=== PATIENT | female | born 1960 | race Caucasian/White ===

== ENCOUNTER → 2016-08-26 | Outpatient (CLI) | payer OTHER ==
[~2016-08-26] MED LIST: ALBI1INJ2 SQ; ASCO500C PO; CENTTAB9; CETI10TA71 PO; CIPR-9 PO; CO Q100C9 PO; CYAN1TAB24 PO; EMPA1TAB3 PO; GABA300C5 PO; GLIM4TAB PO; GLIP10TA6 PO; GLUC500C5 PO; GLYB5TAB3 PO; HYDR-3516 PO; IBUP200T2 PO; IBUP400T20 PO; LEVO.075 PO; MAGN500T4 PO; METF-324 PO; METF1000 PO; METR-1 PO; NAPR220T95 PO; ORPH100T PO; OXYC1TAB63 PO; POTA75TA PO; PROB1CAP12 PO; PYRI1TAB5 PO; SIMV20TA PO; SYNT25TA PO; TRAM50TA PO; VALT1TAB26 PO
== END ==
LOC: CLAB 12:00
PROVIDERS: ATTEND Internal Medicine Hematology
DX: N39.0 Urinary tract infection, site not specified (principal)
CPT/HCPCS: 87086

== ENCOUNTER 2016-08-28 16:16 | Inpatient (IN) | payer OTHER ==
[~2016-08-28] VITALS: Ht 170.2 cm; Wt 111.5 kg
[~2016-08-28 16:16] MED LIST changes: -ALBI1INJ2 SQ; -ASCO500C PO; -CETI10TA71 PO; -CIPR-9 PO; -CO Q100C9 PO; -CYAN1TAB24 PO; -EMPA1TAB3 PO; -GABA300C5 PO; -GLIM4TAB PO; -GLIP10TA6 PO; -GLUC500C5 PO; -HYDR-3516 PO; -IBUP200T2 PO; -LEVO.075 PO; -MAGN500T4 PO; -METF1000 PO; -METR-1 PO; -NAPR220T95 PO; -OXYC1TAB63 PO; -POTA75TA PO; -PROB1CAP12 PO; -PYRI1TAB5 PO; -SIMV20TA PO; -TRAM50TA PO
[2016-08-28 16:18] VITALS: BP 180/86; PULSE 126; RESP 20; TEMP 99.1; O2SAT 97
[2016-08-28] MEDS ORDERED: SODIUM CHLOR 0.9% 1000 ML INJ 1,000 ML IV SCH (16:32)
[2016-08-28 16:34] VITALS: O2SAT 99
[2016-08-28] MEDS ORDERED: TRAM50TA PO (16:34)
[2016-08-28] MEDS ORDERED: METF1000 PO (16:34)
[2016-08-28] MEDS ORDERED: GLIP10TA6 PO (16:34)
[2016-08-28] MEDS ORDERED: LEVO.075 PO (16:34)
[2016-08-28] MEDS ORDERED: SIMV20TA PO (16:34)
[2016-08-28] MEDS ORDERED: EMPA1TAB3 PO (16:34)
[2016-08-28] MEDS ORDERED: ALBI1INJ2 SQ (16:34)
--- NOTE | 2016-08-28 17:02 | RADRPT ---
EXAM DATE/TIME: 08/28/2016 16:53 [facility] COMPARISON: CHEST SINGLE AP, February 06, 2016, 15:04. INDICATIONS : Patient complains of upper abdominal pain. Shortness of breath. MEDICAL HISTORY : None. SURGICAL HISTORY : None. ENCOUNTER: Initial ACUITY: 1 day PAIN SCORE: 0/10 LOCATION: chest FINDINGS: A single view of the chest demonstrates the lungs to be symmetrically aerated without evidence of mas s, infiltrate or effusion. The cardiomediastinal contours are unremarkable. Osseous structures are intact. CONCLUSION: The lungs are clear. Jb Almeida MD on August 28, 2016 at 17:00 Board Certified Radiologist. This report was verified electronically.
[2016-08-28 17:05] LABS: AUTOMATED NEUTROPHIL # 14.4 TH/MM3 (1.8-7.7); BASOPHIL % 0.2 % (0.0-2.0); HEMATOCRIT 46.2 % (35.0-46.0); HEMO FLAGS DIFF FINAL; LYMPH % 3.6 % (9.0-44.0); LYMPHOCYTE # 0.6 TH/MM3 (1.0-4.8); MEAN CELL VOLUME 88.2 FL (80.0-100.0); MEAN CORPUSCULAR HEMOGLOBIN 29.7 PG (27.0-34.0); MEAN CORPUSCULAR HGB CONC 33.7 % (32.0-36.0); MONO % 4.3 % (0.0-8.0); NEUT % 91.9 % (16.0-70.0); PLATELET COUNT 230 TH/MM3 (150-450); RED BLOOD COUNT 5.24 MIL/MM3 (4.00-5.30); RED CELL DISTRIBUTION WIDTH 13.2 % (11.6-17.2); WHITE BLOOD COUNT 15.6 TH/MM3 (4.0-11.0)
[2016-08-28 17:17] LABS: BLOOD, URINE NEG (NEG); COMMENT (UR) CULT NOT INDICATED; CULTURE IF INDICATED CULT NOT INDICATED; GLUCOSE,URINE 1000 mg/dL (NEG); KETONE, URINE 80 mg/dL (NEG); NITRITE,URINE NEG (NEG); PH, URINE 5.5 (5.0-8.5); SQUAMOUS EPITHELIAL CELL URINE 1 /hpf (0-5); URINE COLOR LIGHT-YELLOW (YELLW/STRAW)
--- NOTE | 2016-08-28 17:24 | PD ---
HPI Chief Complaint: Abdominal Pain Time Seen by Provider: 17:18 Travel History International Travel<30 days: No Contact w/Intl Traveler<30days: No Traveled to known affect area: No History of Present Illness HPI 56-year-old female that presents to the ED for evaluation of abdominal discomfort. Per patient she has had some problems with her back and sciatic and she states that she has a herniated disc is that she had an MRI. Per patient she's been doing well with the medications given to her doctor and the physical therapy. Per patient on Tuesday she felt the were sensation of her lower abdomen and she does was related more to the sciatic at that anything else. Per patient she has had yeast infections in the past secondary to diabetes and she was seen by her doctor at that time and was diagnosed with yeast infection she was started on medications for this. On Tuesday she started having more symptoms of fullness in the bladder and sensation that she has to go to the bathroom more. She had a urine and show possible UTI such she was started on Cipro. Per patient she's been taking medications without problems but today she was having some discomfort in the lower abdomen which she attributed to the UTI and yeast infection so she didn't think much of it but she took a nap after doing some chores around her house and when she woke up she felt rebound tenderness on the epigastric area. Per patient the pain became more severe. Per patient she has had no nausea or vomiting. She denies any chest pain. But she does state that she feels short of breath which per patient she attributed to the anxiety as she does not like coming to the hospital. She denies any numbness, tingling, weakness. She states been compliant with her sugar medications. Per patient her sugars have been high. She denies any bowel movement issues. Currently she takes Tylenol, Aleve and tramadol. Per patient she believes she could have a fever as she still had some chills but she thinks that the tramadol but she thinks stasis likely masked because of the Tylenol and Aleve that she chronically takes for her pain in her back. Per patient the pain was feels like a pressure and a cramp. Patient initially started on the lower abdomen but what scared her is that went up the epigastric area. Pain is 7 out of 10. PFSH Past Medical History Diabetes: Yes Patient Takes Glucophage: Yes Thyroid Disease: Yes Tetanus Vaccination: < 5 Years Past Surgical History Cholecystectomy: Yes Social History Alcohol Use: No Tobacco Use: No Substance Use: No Allergies-Medications (Allergen,Severity, Reaction): Coded Allergies: Declomycin (Verified Allergy, Mild, RASH, 08/28/16) Sulfa (Verified Allergy, Mild, RASH, 08/28/16) Reported Meds & Prescriptions Reported Meds & Active Scripts Active Axysucp182 Mg 100 Mg Tobi 100 Mg PO HS Valtrex (Valacyclovir HCl) 1 Gm Tab 1 Gm PO TID 7 Days Motrin (Ibuprofen) 400 Mg Tab 400 Mg PO Q8HPRN Reported Tramadol (Tramadol HCl) 50 Mg Tab 50 Mg PO Q4H PRN Simvastatin 20 Mg Tab 20 Mg PO HS Synthroid (Levothyroxine Sodium) 75 Mcg Tab 75 Mcg PO DAILY Glipizide 10 Mg Tab 8 Mg PO DAILY Take 30 minutes before a meal Metformin (Metformin HCl) 1,000 Mg Tab 1,000 Mg PO BIDPC With meals Jardiance (Empagliflozin) 25 Mg Tab 25 Mg PO DAILY Tanzeum 4-Pack Inj (Albiglutide) 50 Mg Pfpen 50 Mg SQ Q7D Glyburide 5 Mg Tab 2.5 Mg PO DAILY Metformin ER 24 HR (Metformin HCl) 1,000 Mg Tab 1,000 Mg PO BID Synthroid (Levothyroxine Sodium) 25 Mcg Tab 50 Mcg PO DAILY Centrum (Multivitamins) Tab Review of Systems Except as stated in HPI: all other systems reviewed are Neg Physical Exam Narrative GENERAL: Obese SKIN: Warm and dry. HEAD: Atraumatic. Normocephalic. EYES: Pupils equal and round. No scleral icterus. No injection or drainage. ENT: No nasal bleeding or discharge. Mucous membranes pink and moist. Tongue is midline. No uvula deviation. NECK: Trachea midline. No JVD. CARDIOVASCULAR: Regular rate and rhythm. No murmurs, S3, S4. RESPIRATORY: No accessory muscle use. Clear to auscultation. Breath sounds equal bilaterally. GASTROINTESTINAL: Abdomen soft, tender with deep palpation on the epigastric area as well as the lower abdomen, nondistended. Hepatic and splenic margins not palpable. MUSCULOSKELETAL: Extremities without clubbing, cyanosis, or edema. No obvious deformities. Full range of motion of the upper and lower extremities bilaterally. 2+ pulses bilaterally. NEUROLOGICAL: Awake and alert. No obvious cranial nerve deficits. Motor grossly within normal limits. Five out of 5 muscle strength in the arms and legs. Normal speech. PSYCHIATRIC: Appropriate mood and affect; insight and judgment normal. Data Data Last Documented VS Vital Signs Date Time Temp Pulse Resp B/P Pulse Ox O2 Delivery O2 Flow Rate FiO2 08/28/16 18:52 100.9 106 20 147/65 08/28/16 16:34 99 08/28/16 16:18 Room Air Orders Electrocardiogram (08/28/16 16:32) Complete Blood Count With Diff (08/28/16 16:32) Comprehensive Metabolic Panel (08/28/16 16:32) Ckmb (Isoenzyme) Profile (08/28/16 16:32) Troponin I (08/28/16 16:32) Prothrombin Time / Inr (Pt) (08/28/16 16:32) Act Partial Throm Time (Ptt) (08/28/16 16:32) Lipase (08/28/16 16:32) Urinalysis - C+S If Indicated (08/28/16 16:32) Magnesium (Mg) (08/28/16 16:32) Chest, Single Ap (08/28/16 16:32) Ct Abd/Pel W Iv Contrast(Rout) (08/28/16 16:32) Iv Access Insert/Monitor (08/28/16 16:32) Ecg Monitoring (08/28/16 16:32) Oximetry (08/28/16 16:32) Sodium Chlor 0.9% 1000 Ml Inj (Ns 1000 M (08/28/16 16:32) Lactic Acid (08/28/16 17:18) CKMB (08/28/16 16:45) CKMB% (08/28/16 16:45) Iohexol 350 Inj (Omnipaque 350 Inj) (08/28/16 18:29) Metronidazole 500 Mg Inj (Flagyl 500 Mg (08/28/16 19:15) Ciprofloxacin 200 Mg Premix (Cipro 200 M (08/28/16 19:15) Morphine Inj (Morphine Inj) (08/28/16 19:15) Ondansetron Inj (Zofran Inj) (08/28/16 19:15) Labs Laboratory Tests Test 08/28/16 08/28/16 16:45 17:30 White Blood Count 15.6 TH/MM3 Red Blood Count 5.24 MIL/MM3 Hemoglobin 15.6 GM/DL Hematocrit 46.2 % Mean Corpuscular Volume 88.2 FL Mean Corpuscular Hemoglobin 29.7 PG Mean Corpuscular Hemoglobin 33.7 % Concent Red Cell Distribution Width 13.2 % Platelet Count 230 TH/MM3 Mean Platelet Volume 7.9 FL Neutrophils (%) (Auto) 91.9 % Lymphocytes (%) (Auto) 3.6 % Monocytes (%) (Auto) 4.3 % Eosinophils (%) (Auto) 0.0 % Basophils (%) (Auto) 0.2 % Neutrophils # (Auto) 14.4 TH/MM3 Lymphocytes # (Auto) 0.6 TH/MM3 Monocytes # (Auto) 0.7 TH/MM3 Eosinophils # (Auto) 0.0 TH/MM3 Basophils # (Auto) 0.0 TH/MM3 CBC Comment DIFF FINAL Differential Comment Prothrombin Time 10.7 SEC Prothromb Time International 1.0 RATIO Ratio Activated Partial 25.7 SEC Thromboplast Time Urine Color LIGHT-YELLOW Urine Turbidity CLEAR Urine pH 5.5 Urine Specific [place] 1.036 Urine Protein NEG mg/dL Urine Glucose (UA) 1000 mg/dL Urine Ketones 80 mg/dL Urine Occult Blood NEG Urine Nitrite NEG Urine Bilirubin NEG Urine Urobilinogen LESS THAN 2.0 MG/DL Urine Leukocyte Esterase NEG Urine RBC LESS THAN 1 /hpf Urine WBC 1 /hpf Urine Squamous Epithelial 1 /hpf Cells Microscopic Urinalysis Comment CULT NOT INDICATED Sodium Level 139 MEQ/L Potassium Level 4.1 MEQ/L Chloride Level 104 MEQ/L Carbon Dioxide Level 23.9 MEQ/L Anion Gap 11 MEQ/L Blood Urea Nitrogen 15 MG/DL Creatinine 0.83 MG/DL Estimat Glomerular Filtration 71 ML/MIN Rate Random Glucose 206 MG/DL Calcium Level 9.0 MG/DL Magnesium Level 2.2 MG/DL Total Bilirubin 0.7 MG/DL Aspartate Amino Transf 13 U/L (AST/SGOT) Alanine Aminotransferase 27 U/L (ALT/SGPT) Alkaline Phosphatase 52 U/L Total Creatine Kinase 159 U/L Creatine Kinase MB 2.0 NG/ML Troponin I LESS THAN 0.02 NG/ML Total Protein 7.8 GM/DL Albumin 4.6 GM/DL Lipase 71 U/L Lactic Acid Level 1.3 mmol/L MDM Medical Decision Making Medical Screen Exam Complete: Yes Emergency Medical Condition: Yes Medical Record Reviewed: Yes Interpretation(s) CBC Diagram 08/28/16 16:45 BMP Diagram 08/28/16 16:45 LFts and lipase WNL UA negative EKG shows sinus tachycardia. Last Impressions Chest X-Ray 08/28/16 1632 Signed Impressions: Service Date/Time: Sunday, August 28, 2016 16:53 - CONCLUSION: The lungs are clear. Jb Almeida MD Abdomen/Pelvis CT 08/28/16 1632 Signed Impressions: Service Date/Time: Sunday, August 28, 2016 18:20 - CONCLUSION: 1. Dilation of the common bile duct up to 12 mm. Prior cholecystectomy. No filling defects seen in the common bile duct, but there is a possible fullness seen in the region of the ampulla. Recommend direct visualization of the ampulla with ERCP. 2. Questionable induration along the superior margin of the proximal sigmoid colon with multiple diverticula in the sigmoid colon. Cannot exclude diverticulitis on the basis of the scan. No evidence of free fluid. Jb Almeida MD Differential Diagnosis UTI versus cystitis versus diverticulitis versus sepsis versus DKA versus acute abdomen versus appendicitis versus pyelonephritis Narrative Course 56-year-old female that presents to the ED for evaluation of lower abdominal pain. Patient was properly examined and was found to have signs and symptoms of unclear etiology at this time. She is profoundly tachycardic in the 120s. Concerning for septics secondary to her history of recent infection. Last and imaging are recommended. Patient he complains of shortness of breath and with epigastric pain. Patient is diabetic. The less likely this could be angina equivalent. We'll do an EKG and troponin to rule out any sign of heart disease at this time although less likely. Labs and imaging showed what appears to be diverticulitis. CT of the abdomen and pelvis did show dilatation of the common bile duct patient does not have any right upper quadrant pain on my examination. Patient does appear to be septic with an elevated while sick and as well as elevated heart rate and a fever here in the ED. Because of the symptoms I do recommend admission for sepsis and diverticulitis. This was discussed with the patient who agrees with plan. ESTHER was paged and Dr Mansfield agrees to admission. Procedures EKG Prior to Arrival: No Sepsis Criteria SIRS Criteria (2 or more): Temp > 100.9 or < 96.8, Heart rate over 90, WBC > 60806, < 4000 or > 10% bands Sepsis Criteria (SIRS+source): Infect source susp/known Criteria Outcome: Meets sepsis criteria Diagnosis Primary Impression: Diverticulitis Qualified Code: K57.32 - Diverticulitis of large intestine without perforation or abscess without bleeding Additional Impression: Sepsis Qualified Code: A41.9 - Sepsis, due to unspecified organism Admitting Information Admitting Physician Requests: Admit Davy Donald Aug 28, 2016 17:24
[2016-08-28 17:26] LABS: APTT (PATIENT) 25.7 SEC (24.3-30.1); PROTHROMBIN TIME - PATIENT 10.7 SEC (9.8-11.6)
[2016-08-28 17:32] LABS: ALT (GPT) 27 U/L (10-53); ANION GAP 11 MEQ/L (5-15); AST (GOT) 13 U/L (15-37); BICARBONATE 23.9 MEQ/L (21.0-32.0); BLOOD UREA NITROGEN 15 MG/DL (7-18); CHLORIDE 104 MEQ/L (98-107); GLOMERULAR FILTRATION RATE 71 ML/MIN (>89); MAGNESIUM 2.2 MG/DL (1.5-2.5); POTASSIUM 4.1 MEQ/L (3.5-5.1); SODIUM (NA) 139 MEQ/L (136-145)
[2016-08-28 17:35] LABS: ALKALINE PHOSPHATASE 52 U/L (45-117); CREATINE KINASE 159 U/L (26-192); TOTAL BILIRUBIN ADULT 0.7 MG/DL (0.2-1.0)
[2016-08-28] MEDS ORDERED: IOHEXOL 350 MG/ML 10 ML VIAL (for RAD DIAG) IV ONE (18:29)
[2016-08-28 18:52] VITALS: BP 147/65; PULSE 106; RESP 20; TEMP 100.9
--- NOTE | 2016-08-28 18:56 | RADRPT ---
EXAM DATE/TIME: 08/28/2016 18:20 [facility] COMPARISON: No previous studies available for comparison. INDICATIONS : Abdomen pain. IV CONTRAST: 94 cc Omnipaque 350 (iohexol) IV ORAL CONTRAST: No oral contrast ingested. RADIATION DOSE: 14.81 CTDIvol (mGy) MEDICAL HISTORY : Diabetic. SURGICAL HISTORY : Cholecystectomy. ENCOUNTER: Initial ACUITY: 1 day PAIN SCALE: 5/10 LOCATION: Bilateral abdomen. TECHNIQUE: Volumetric scanning of the abdomen and pelvis was performed. Using automated exposure control and ad justment of the mA and/or kV according to patient size, radiation dose was kept as low as reasonably achievable to obtain optimal diagnostic quality images. FINDINGS: LOWER LUNGS: The visualized lower lungs are clear. LIVER: Homogeneous density without lesion. There is no dilation of the intrahepatic biliary tree. Multiple hemo clips in the kristie from prior cholecystectomy. The common bile duct is prominent measuring up to 1.2 cm in dimension. No calcifications seen.. SPLEEN: Normal size without lesion. PANCREAS: Within normal limits. KIDNEYS: Normal in size and shape. There is no mass, stone or hydronephrosis. ADRENAL GLANDS: Within normal limits. VASCULAR: There is no aortic aneurysm. BOWEL/MESENTERY: No dilated loops of small or large bowel. There are multiple diverticula in the sigmoid colon and so me scattered diverticulum left colon. No definite induration of the fat about the sigmoid colon, how ever, on image #81, there is questionable induration versus partial voluming. No evidence of free fl uid. ABDOMINAL WALL: Within normal limits. RETROPERITONEUM: There is no lymphadenopathy. BLADDER: No wall thickening or mass. REPRODUCTIVE: Within normal limits. INGUINAL: There is no lymphadenopathy or hernia. MUSCULOSKELETAL: Moderate severity osteoarthritis of both hips with supra-acetabular cystic areas and sclerosis of the supra-acetabular bone. CONCLUSION: 1. Dilation of the common bile duct up to 12 mm. Prior cholecystectomy. No filling defects seen in the common bile duct, but there is a possible fullness seen in the region of the ampulla. Recommend direct visualization of the ampulla with ERCP. 2. Questionable induration along the superior margin of the proximal sigmoid colon with multiple dive rticula in the sigmoid colon. Cannot exclude diverticulitis on the basis of the scan. No evidence o f free fluid. Jb Almeida MD on August 28, 2016 at 18:49 Board Certified Radiologist. This report was verified electronically.
[2016-08-28] MEDS ORDERED: MORPHINE SULFATE 4 MG/ML INJ IV PUSH ONE (19:15)
[2016-08-28] MEDS ORDERED: CIPROFLOXACIN 200 MG PREMIX 100 ML IV ONE (19:15)
[2016-08-28] MEDS ORDERED: ONDANSETRON HCL 4 MG/2 ML VIAL IV PUSH ONE (19:15)
[2016-08-28] MEDS ORDERED: metroNIDAZOLE 500 MG INJ 100 ML IV ONE (19:15)
--- NOTE | 2016-08-28 19:35 | HHI.HP ---
[facility] Kisha Gallego MD Admission Diagnosis diverticulitis, sepsis Diagnoses: (1) Sepsis Diagnosis: Principal (2) Diverticulitis Diagnosis: Principal (3) DM (diabetes mellitus) Diagnosis: Principal Travel History International Travel<30 Days: No Contact w/Intl Traveler <30 Da: No Traveled to Known Affected Are: No History of Present Illness This is a 56-year-old female with a PMH of DM and Hypothyroidism who presented to the ER with complaints of lower abdominal pain for approx 1wk. 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 The following day while at work, she developed symptoms of UTI and was prescribed Cipro, however not able to fill prescription until yesterday. Today, pt w/ severe abdominal pain w/ "rebound" and decided to come to ER. Denies fever, chills, nausea, vomiting or diarrhea. On arrival, BP 180/ 86, HR 126, O2 sat 97% on RA, Temp 99.1, repeat Temp 100.9. WBC 15.6. Chemistry essentially unremarkable except for BS 206. Lactic Acid 1.3. UA negative. CXR with no acute findings. CT Abd/Pelvis w/ dilation of CBD w/ possible fullness for which ERCP recommended and questionable induration along proximal sigmoid colon suggestive of diverticulitis. S/p Blood Cultures, Cipro/ Flagyl in ER. Review of Systems Other ROS: 14 point review of systems otherwise negative. Past Family Social History Past Medical History PMH: DM and Hypothyroidism Past Surgical History PAST SURGICAL HISTORY: Cholecystectomy Allergies: Coded Allergies: Declomycin (Verified Allergy, Mild, RASH, 08/28/16) Sulfa (Verified Allergy, Mild, RASH, 08/28/16) Family History PAST FAMILY HISTORY: Reviewed, positive for DM. Social History PAST SOCIAL HISTORY: Negative for alcohol, tobacco or drugs. Physical Exam Vital Signs Vital Signs Date Time Temp Pulse Resp B/P Pulse Ox O2 Delivery O2 Flow Rate FiO2 08/28/16 18:52 100.9 106 20 147/65 08/28/16 16:34 99 08/28/16 16:18 99.1 126 20 180/86 97 Room Air Physical Exam PE: GENERAL: Very pleasant middle-aged white female in no acute distress. HEENT: PERRLA, EOMI. No scleral icterus or conjunctival pallor. No lid lag or facial droop. CARDIOVASCULAR: Regular rate and rhythm. No obvious murmurs to auscultation. No chest tenderness to palpation. RESPIRATORY: No obvious rhonchi or wheezing. Clear to auscultation. Breath sounds equal bilaterally. GASTROINTESTINAL: Abdomen soft, diffuse tenderness to palpation, nondistended. BS normal. MUSCULOSKELETAL: Extremities without clubbing, cyanosis, or edema. No obvious deformities. NEUROLOGICAL: Awake, alert and oriented x4. No focal neurologic deficits. Moving both upper and lower extremities spontaneously. Laboratory Laboratory Tests Test 08/28/16 08/28/16 16:45 17:30 White Blood Count 15.6 Red Blood Count 5.24 Hemoglobin 15.6 Hematocrit 46.2 Mean Corpuscular Volume 88.2 Mean Corpuscular Hemoglobin 29.7 Mean Corpuscular Hemoglobin 33.7 Concent Red Cell Distribution Width 13.2 Platelet Count 230 Mean Platelet Volume 7.9 Neutrophils (%) (Auto) 91.9 Lymphocytes (%) (Auto) 3.6 Monocytes (%) (Auto) 4.3 Eosinophils (%) (Auto) 0.0 Basophils (%) (Auto) 0.2 Neutrophils # (Auto) 14.4 Lymphocytes # (Auto) 0.6 Monocytes # (Auto) 0.7 Eosinophils # (Auto) 0.0 Basophils # (Auto) 0.0 CBC Comment DIFF FINAL Differential Comment Prothrombin Time 10.7 Prothromb Time International 1.0 Ratio Activated Partial 25.7 Thromboplast Time Urine Color LIGHT-YELLOW Urine Turbidity CLEAR Urine pH 5.5 Urine Specific [place] 1.036 Urine Protein NEG Urine Glucose (UA) 1000 Urine Ketones 80 Urine Occult Blood NEG Urine Nitrite NEG Urine Bilirubin NEG Urine Urobilinogen LESS THAN 2.0 Urine Leukocyte Esterase NEG Urine RBC LESS THAN 1 Urine WBC 1 Urine Squamous Epithelial 1 Cells Microscopic Urinalysis Comment CULT NOT INDICATED Sodium Level 139 Potassium Level 4.1 Chloride Level 104 Carbon Dioxide Level 23.9 Anion Gap 11 Blood Urea Nitrogen 15 Creatinine 0.83 Estimat Glomerular Filtration 71 Rate Random Glucose 206 Calcium Level 9.0 Magnesium Level 2.2 Total Bilirubin 0.7 Aspartate Amino Transf 13 (AST/SGOT) Alanine Aminotransferase 27 (ALT/SGPT) Alkaline Phosphatase 52 Total Creatine Kinase 159 Creatine Kinase MB 2.0 Troponin I LESS THAN 0.02 Total Protein 7.8 Albumin 4.6 Lipase 71 Lactic Acid Level 1.3 Result Diagram: 08/28/16 1645 08/28/161644 Assessment and Plan Problem List: (1) Sepsis ICD Code: A41.9 Status: Acute (2) Diverticulitis ICD Code: K57.92 Status: Acute (3) DM (diabetes mellitus) ICD Code: E11.9 Status: Acute Assessment and Plan A/P: 1. Sepsis: Temp 100.9, WBC 15, HR 126, Source-Colitis. S/p Blood Cultures, Cipro/Flagyl. Follow up cultures, continue IV Abx. CXR w/ no acute findings, images reviewed by me. 2. Diverticulitis: Lower abdominal pain x1 wk, CT Abd/Pelvis w/ questionable induration along proximal sigmoid colon suggestive of diverticulitis, also noted to have CBD dilatation w/ possible fullness of ampulla for which ERCP was recommended. Pt w/ no RUQ pain. Will continue w/ IV Abx for Diverticulitis, if symptoms persistent, will ask GI to eval for further recommendations. Analgesics/antiemetics. 3. DM: Sliding scale w/ Accu-Cheks, hold Metformin/Glipizide in light of Sepsis and decreased PO intake. 4. DVT Prophylaxis: SCD/Teds. 5. Social work for d/c planning as needed. 6. Case discussed w/ ER physician at length. Physician Certification 2 Midnight Certification Type: Admission for Inpatient Services Order for Inpatient Services The services are ordered in accordance with Medicare regulations or non- Medicare payer requirements, as applicable. In the case of services not specified as inpatient-only, they are appropriately provided as inpatient services in accordance with the 2-midnight benchmark. Estimated LOS (days): 2 days is the estimated time the patient will need to remain in the hospital, assuming treatment plan goals are met and no additional complications. Post-Hospital Plan: Not yet determined Problem Qualifiers (1) Sepsis: Qualified Code: A41.9 - Sepsis, due to unspecified organism (2) Diverticulitis: Qualified Code: K57.32 - Diverticulitis of large intestine without perforation or abscess without bleeding Judy Mansfield MD Aug 28, 2016 19:35
[2016-08-28] MEDS ORDERED: SODIUM CHLORIDE 0.9% FLUSH 5 ML FLUSH FLUSH PRN (19:45)
[2016-08-28] MEDS ORDERED: DEXTROSE 50% IN WATER 50 ML VIAL(D50) IV PUSH PRN (19:45)
[2016-08-28] MEDS ORDERED: ACETAMINOPHEN/HYDROcodone 325 MG/5 MG TAB PO PRN (19:45)
[2016-08-28] MEDS ORDERED: BISACODYL 10 MG SUPP PR PRN (19:45)
[2016-08-28] MEDS ORDERED: GLUCAGON 1 MG/ML VIAL OTHER PRN (19:45)
[2016-08-28] MEDS: SODIUM CHLOR 0.9% 1000 ML INJ 1,000 ML IV SCH (19:57)
[2016-08-28] MEDS: SODIUM CHLORIDE 0.9% FLUSH 5 ML FLUSH FLUSH SCH (20:36)
[2016-08-28] MEDS: INSULIN ASPART SUPPLEMENTAL SCALE SQ SCH (20:40)
[2016-08-28 21:11] VITALS: BP 121/53; PULSE 102; RESP 18; TEMP 100; O2SAT 98
[2016-08-28] MEDS: MORPHINE SULFATE 4 MG/ML INJ IV PRN (21:37)
[2016-08-28 21:50] VITALS: O2SAT 94
[2016-08-29] VITALS (7 sets, daily range): BP systolic 108–123; BP diastolic 50–61; PULSE 81–108; RESP 16–18; TEMP 98–99.5; O2SAT 93–97
[2016-08-29] MEDS: MORPHINE SULFATE 4 MG/ML INJ IV PRN ×5 (00:29→11:54)
[2016-08-29] MEDS: ACETAMINOPHEN 325 MG TAB PO PRN ×2 (03:46→08:26)
[2016-08-29] MEDS: SODIUM CHLOR 0.9% 1000 ML INJ 1,000 ML IV SCH ×2 (03:49→11:55)
[2016-08-29] MEDS: metroNIDAZOLE 500 MG INJ 100 ML IV SCH ×3 (03:49→19:47)
[2016-08-29 05:28] LABS: ALT (GPT) 20 U/L (10-53); ANION GAP 10 MEQ/L (5-15); AST (GOT) 8 U/L (15-37); BICARBONATE 23.5 MEQ/L (21.0-32.0); BLOOD UREA NITROGEN 11 MG/DL (7-18); CHLORIDE 107 MEQ/L (98-107); GLOMERULAR FILTRATION RATE 105 ML/MIN (>89); POTASSIUM 4.1 MEQ/L (3.5-5.1); SODIUM (NA) 140 MEQ/L (136-145)
[2016-08-29 05:29] LABS: ALKALINE PHOSPHATASE 43 U/L (45-117); TOTAL BILIRUBIN ADULT 0.8 MG/DL (0.2-1.0)
[2016-08-29 05:39] LABS: AUTOMATED NEUTROPHIL # 13.1 TH/MM3 (1.8-7.7); BASOPHIL % 0.1 % (0.0-2.0); HEMATOCRIT 41.2 % (35.0-46.0); HEMO FLAGS DIFF FINAL; LYMPH % 6.9 % (9.0-44.0); MEAN CELL VOLUME 89.6 FL (80.0-100.0); MEAN CORPUSCULAR HEMOGLOBIN 29.5 PG (27.0-34.0); MEAN CORPUSCULAR HGB CONC 32.9 % (32.0-36.0); MONO % 4.4 % (0.0-8.0); NEUT % 88.6 % (16.0-70.0); PLATELET COUNT 218 TH/MM3 (150-450); RED CELL DISTRIBUTION WIDTH 13.2 % (11.6-17.2); WHITE BLOOD COUNT 14.7 TH/MM3 (4.0-11.0)
[2016-08-29] MEDS: INSULIN ASPART SUPPLEMENTAL SCALE SQ SCH ×4 (06:16→19:56)
[2016-08-29] MEDS: CIPROFLOXACIN 400 MG PREMIX 200 ML IV SCH ×2 (06:16→17:15)
[2016-08-29] MEDS: SODIUM CHLORIDE 0.9% FLUSH 5 ML FLUSH FLUSH SCH ×2 (07:49→19:47)
--- NOTE | 2016-08-29 08:02 | HHI.PR ---
Subjective Remarks still with lower abdominal pain. no nausea, vomiting or diarrhea. T max 100.9. Objective Vitals Vital Signs Date Time Temp Pulse Resp B/P Pulse Ox O2 Delivery O2 Flow Rate FiO2 08/29/16 04:00 99.5 91 18 109/57 96 08/29/16 00:00 99.5 96 16 108/54 97 08/28/16 21:50 94 08/28/16 21:11 100.0 102 18 121/53 98 08/28/16 18:52 100.9 106 20 147/65 08/28/16 16:34 99 08/28/16 16:18 99.1 126 20 180/86 97 Room Air I/O 08/28/16 08/28/16 08/28/16 08/29/16 08/29/16 08/29/16 07:00 15:00 23:00 07:00 15:00 23:00 Intake Total 1000 ml 1151 ml Balance 1000 ml 1151 ml Intake Oral 240 ml IV Total 1000 ml 911 ml # Voids 1 # Bowel Movements 0 Result Diagram: 08/29/16 0343 08/29/16 0343 Imaging Last Impressions Chest X-Ray 08/28/16 1632 Signed Impressions: Service Date/Time: Sunday, August 28, 2016 16:53 - CONCLUSION: The lungs are clear. Jb Almeida MD Abdomen/Pelvis CT 08/28/16 1632 Signed Impressions: Service Date/Time: Sunday, August 28, 2016 18:20 - CONCLUSION: 1. Dilation of the common bile duct up to 12 mm. Prior cholecystectomy. No filling defects seen in the common bile duct, but there is a possible fullness seen in the region of the ampulla. Recommend direct visualization of the ampulla with ERCP. 2. Questionable induration along the superior margin of the proximal sigmoid colon with multiple diverticula in the sigmoid colon. Cannot exclude diverticulitis on the basis of the scan. No evidence of free fluid. Jb Almeida MD Objective Remarks GENERAL: This is a well-nourished, well-developed patient, in no apparent distress. CARDIOVASCULAR: Regular rate and regular rhythm without murmurs, gallops, or rubs. RESPIRATORY: Clear to auscultation. Breath sounds equal bilaterally. No wheezes , rales, or rhonchi. GASTROINTESTINAL: Abdomen soft, lower abdominal tenderness, nondistended. Normal, active bowel sounds MUSCULOSKELETAL: Extremities without clubbing, cyanosis, or edema. NEURO: Alert & Oriented x4 to person, place, time, situation. Moves all ext x4 Procedures none Medications and IVs Current Medications Sodium Chloride (NS 1000 ml Inj) 1,000 ml @ 1,000 mls/hr Q1H IV Last administered on 08/28/16 16:59; Start 08/28/16 at 16:32; Stop 08/28/16 at 17:31 ; Status DC Iohexol 100 ml 100 ml STK-MED ONCE IV ; Start 08/28/16 at 18:29; Stop 08/28/16 at 18:30; Status DC Metronidazole 100 ml @ 100 mls/hr ONCE ONCE IV Last administered on 19:21; Start 08/28/16 at 19:15; Stop 08/28/16 at 20:14; Status DC Ciprofloxacin/ Dextrose (Cipro 200 Mg Premix) 100 ml @ 100 mls/hr ONCE ONCE IV Last administered on 08/28/16 20:55; Start 08/28/16 at 19:15; Stop at 20:14; Status DC Morphine Sulfate (Morphine Inj) 4 mg ONCE ONCE IV PUSH Last administered on 19:20; Start 08/28/16 at 19:15; Stop 08/28/16 at 19:16; Status DC Ondansetron HCl (Zofran Inj) 4 mg ONCE ONCE IV PUSH Last administered on 19:20; Start 08/28/16 at 19:15; Stop 08/28/16 at 19:16; Status DC Dextrose (D50w (Vial) Inj) 25 ml UNSCH PRN IV PUSH HYPOGLYCEMIA-SEE COMMENTS; Start 08/28/16 at 19:45 Glucagon (Glucagon Inj) 1 mg UNSCH PRN OTHER HYPOGLYCEMIA-SEE COMMENTS; Start 08/28/16 at 19:45 Insulin Aspart 1 1 ACHS SLIDING SCALE SQ Last administered on 08/28/16 20:40 ; Start 08/28/16 at 21:00 Ciprofloxacin/ Dextrose 200 ml @ 200 mls/hr Q12H IV Last administered on 06:16; Start 08/29/16 at 07:00 Metronidazole 100 ml @ 100 mls/hr Q8H IV Last administered on 08/29/16 03:49 ; Start 08/29/16 at 05:00 Sodium Chloride (NS 1000 ml Inj) 1,000 ml @ 100 mls/hr Q10H IV Last administered on 08/29/16 03:49; Start 08/28/16 at 19:32 IV Flush (NS Flush) 2 ml UNSCH PRN FLUSH FLUSH AFTER USING IV ACCESS Last administered on 08/28/16 21:37; Start 08/28/16 at 19:45 IV Flush (NS Flush) 2 ml BID FLUSH ; Start 08/28/16 at 21:00 Ondansetron HCl (Zofran Inj) 4 mg Q6H PRN IVP NAUSEA OR VOMITING; Start at 19:45 Bisacodyl (Dulcolax Supp) 10 mg DAILY PRN [place] CONSTIPATION; Start 08/28/16 at 19 :45 Acetaminophen (Tylenol) 650 mg Q6H PRN PO FEVER/PAIN SCALE 1 TO 2 Last administered on 08/29/16 03:46; Start 08/28/16 at 19:45 Acetaminophen/ Hydrocodone Bitart ([place] 5-325 Mg) 1 tab Q4H PRN PO PAIN SCALE 3 TO 5; Start 08/28/16 at 19:45 Morphine Sulfate (Morphine Inj) 2 mg Q3H PRN IV Pain 6-10 Last administered on 08/29/16 06:17; Start 08/28/16 at 19:45 A/P Assessment and Plan A/P - Sepsis likely due to Diverticulitis: Lower abdominal pain x1 wk, CT Abd/Pelvis w/ questionable induration along proximal sigmoid colon suggestive of diverticulitis, also noted to have CBD dilatation w/ possible fullness of ampulla for which ERCP was recommended. Pt w / no RUQ pain. Will continue w/ IV Abx for Diverticulitis. Analgesics/ antiemetics. will consult GI. - DM: Sliding scale w/ Accu-Cheks, hold Metformin/Glipizide in light of Sepsis and decreased PO intake. -hypothyroidism; resume home meds upon discharge. - DVT Prophylaxis: SCD/Teds. Mallory Hamilton MD Aug 29, 2016 08:02
--- NOTE | 2016-08-29 12:08 | HHI.GIFU ---
Objective Vitals I&O Vital Signs Date Time Temp Pulse Resp B/P Pulse Ox O2 Delivery O2 Flow Rate FiO2 08/29/16 09:26 20 08/29/16 09:09 18 08/29/16 08:00 98.8 85 17 109/50 96 08/29/16 04:00 99.5 91 18 109/57 96 08/29/16 00:00 99.5 96 16 108/54 97 08/28/16 21:50 94 08/28/16 21:11 100.0 102 18 121/53 98 08/28/16 18:52 100.9 106 20 147/65 08/28/16 16:34 99 08/28/16 16:18 99.1 126 20 180/86 97 Room Air I/O 08/28/16 08/28/16 08/28/16 08/29/16 08/29/16 08/29/16 07:00 15:00 23:00 07:00 15:00 23:00 Intake Total 1000 ml 1151 ml Balance 1000 ml 1151 ml Intake Oral 240 ml IV Total 1000 ml 911 ml # Voids 1 # Bowel Movements 0 Laboratory Laboratory Tests Test 08/28/16 08/28/16 08/29/16 16:45 17:30 03:43 White Blood Count 15.6 14.7 Red Blood Count 5.24 4.60 Hemoglobin 15.6 13.6 Hematocrit 46.2 41.2 Mean Corpuscular Volume 88.2 89.6 Mean Corpuscular Hemoglobin 29.7 29.5 Mean Corpuscular Hemoglobin 33.7 32.9 Concent Red Cell Distribution Width 13.2 13.2 Platelet Count 230 218 Mean Platelet Volume 7.9 8.1 Neutrophils (%) (Auto) 91.9 88.6 Lymphocytes (%) (Auto) 3.6 6.9 Monocytes (%) (Auto) 4.3 4.4 Eosinophils (%) (Auto) 0.0 0.0 Basophils (%) (Auto) 0.2 0.1 Neutrophils # (Auto) 14.4 13.1 Lymphocytes # (Auto) 0.6 1.0 Monocytes # (Auto) 0.7 0.7 Eosinophils # (Auto) 0.0 0.0 Basophils # (Auto) 0.0 0.0 CBC Comment DIFF FINAL DIFF FINAL Differential Comment Prothrombin Time 10.7 Prothromb Time International 1.0 Ratio Activated Partial 25.7 Thromboplast Time Urine Color LIGHT-YELLOW Urine Turbidity CLEAR Urine pH 5.5 Urine Specific [place] 1.036 Urine Protein NEG Urine Glucose (UA) 1000 Urine Ketones 80 Urine Occult Blood NEG Urine Nitrite NEG Urine Bilirubin NEG Urine Urobilinogen LESS THAN 2.0 Urine Leukocyte Esterase NEG Urine RBC LESS THAN 1 Urine WBC 1 Urine Squamous Epithelial 1 Cells Microscopic Urinalysis Comment CULT NOT INDICATED Sodium Level 139 140 Potassium Level 4.1 4.1 Chloride Level 104 107 Carbon Dioxide Level 23.9 23.5 Anion Gap 11 10 Blood Urea Nitrogen 15 11 Creatinine 0.83 0.59 Estimat Glomerular Filtration 71 105 Rate Random Glucose 206 124 Calcium Level 9.0 8.3 Magnesium Level 2.2 Total Bilirubin 0.7 0.8 Aspartate Amino Transf 13 8 (AST/SGOT) Alanine Aminotransferase 27 20 (ALT/SGPT) Alkaline Phosphatase 52 43 Total Creatine Kinase 159 Creatine Kinase MB 2.0 Troponin I LESS THAN 0.02 Total Protein 7.8 6.5 Albumin 4.6 3.5 Lipase 71 Lactic Acid Level 1.3 Assessment and Plan Physician Comments dictation line problems-consult to be dictated when able Plan egd/colon in Leidy Martel MD Aug 29, 2016 12:08 [employer]ICAL [employer]OL [employer]OL PROGRAMMER: No focal deficits; alert and oriented times three. Assessment and Plan Physician Comments dictation line problems-consult to be dictated when able Plan egd/colon in Leidy Martel MD Aug 29, 2016 12:08
[2016-08-29] MEDS ORDERED: PEG (High)/E-LYTE SOLN 4000 ML BTL PO ONE (13:00)
--- NOTE | 2016-08-29 13:19 | EKG ---
Date Performed: 08/28/2016 Time Performed: 16:39:22 PTAGE: 56 years EKG: SINUS TACHYCARDIA ABNORMAL RHYTHM ECG Compared to prior tracing no significant change PREVIOUS TRACING : 02/06/2016 14.48 DOCTOR: Johnathon Nice Interpretating Date/Time 08/29/2016 13:15:02
--- NOTE | 2016-08-29 14:51 | RADRPT ---
EXAM DATE/TIME: 08/29/2016 14:00 [facility] COMPARISON: CT ABDOMEN & PELVIS W CONTRAST, August 28, 2016, 18:20. INDICATIONS : Abnormal CT scan. MEDICAL HISTORY : Diabetes mellitus type 2. SURGICAL HISTORY : Cholecystectomy. ENCOUNTER: Initial ACUITY: 1 day PAIN SCORE: 4/10 LOCATION: Abdomen TECHNIQUE: Multiplanar, multisequence magnetic resonance imaging of the abdomen was performed. High-resolution 3D dataset was utilized to reconstruct maximum-intensity projection (MIP) images. FINDINGS: INTRAHEPATIC BILE DUCTS: Within normal limits. No significant anatomical variant is present. EXTRAHEPATIC BILE DUCTS: The common bile duct measures 1.3 cm No stone or filling defect is identified. GALLBLADDER: Surgically removed. LIVER: Normal size and signal intensity. No concerning liver lesion is identified on this non-contrast exam. PANCREAS: The main pancreatic duct is normal in size. There is no significant anatomical variant. Signal inte nsity is within normal limits. No mass is visualized on this non-contrast exam. OTHER: The remaining visualized structures demonstrate no acute abnormality on this non-contrast exam. CONCLUSION: 1. Status post cholecystectomy. 2. The common bile duct measures 1.3 cm with no definite filling defects. No definite dilated biliary ducts. This is most likely reservoir effect secondary to cholecystectomy. Recommend correlation with liver laboratory values. If this does not correlate clinically, ERCP could be performed for further evaluation. Ady Her MD on August 29, 2016 at 14:45 Board Certified Radiologist. This report was verified electronically.
[2016-08-29] MEDS: HYDROmorphone HCL PF 1 MG/ML VIAL IV PUSH PRN ×2 (15:27→19:48)
[2016-08-29] MEDS: ONDANSETRON HCL 4 MG/2 ML VIAL IVP PRN (17:16)
--- NOTE | 2016-08-29 18:20 | MB ---
cc: LEIDY HEREDIA M.D., MAZHAR MD DATE OF CONSULTATION 08/29/[address] Hamilton. DATE OF 1960 REASON FOR CONSULTATION Abdominal pain. HISTORY OF THE PRESENT ILLNESS Mrs. Sheehan is a very pleasant 56-year-old lady who has a history of herniated disk causing tremendous back pain and leg pain, came to the emergency room with complaints of abdominal pain mostly in the lower abdomen for approximately one week. The patient is having issues with yeast infections on and off had similar symptoms. She was given Diflucan without much improvement. The patient also developed a urinary tract infection, was given Cipro and she did not start the medication until yesterday. She continued to have pain in the lower abdomen, also going up to her epigastrium. Because of the above she decided to come to the emergency room for further evaluation and treatment. She denies any nausea and vomiting, trouble swallowing, melena, hematemesis or hematochezia. The patient had a colonoscopy back in 2007. A CT abdomen and pelvis showed possible fullness in the ampulla, ERCP recommended. Also a question of induration along the sigmoid colon suggestive of mild diverticulitis. PAST MEDICAL HISTORY 1. Diabetes. 2. Hypothyroidism. 3. Sleep apnea, uses CPAP. PAST SURGICAL HISTORY Cholecystectomy. MEDICATIONS In the hospital she is takin. Dilaudid. 2. Cipro. 3. Metronidazole. 4. Insulin. 5. Glucagon. 6. Zofran. 7. Dulcolax. 8. IV fluids. ALLERGIES DECLOMYCIN, SULFA. FAMILY HISTORY Diabetes. SOCIAL HISTORY Denies smoking, drinking or drug use. PHYSICAL EXAMINATION GENERAL: On clinical examination she is sitting in bed in no acute distress. She is complaining of some back pain. HEENT: Pupils equal, round, reactive to light and accommodation. NECK: No JVD. No lymphadenopathy. CHEST: Clear to auscultation and percussion. CARDIOVASCULAR: S1-S2. No murmur. ABDOMEN: Soft. Obese. Bowel sounds are present. Tender in the lower abdomen and upper abdomen. CENTRAL NERVOUS SYSTEM: Awake, alert, oriented times three. No focal signs identified. VITAL SIGNS: Her temperature is 98, pulse is 108, respiratory rate 18, blood pressure 110/57. LABORATORY DATA Labs were white count was 15.6 currently 14.7, hemoglobin is 13.6. PT/INR normal. Her chemistry was normal except the glucose 124. Urinalysis showed the presence of ketones. IMAGING A CT abdomen and pelvis was done and that showed dilatation of the common bile duct to 12 mm. No filling defect. Questionable induration along the sigmoid colon. Discussed with the radiologist. Most likely she just has diverticulosis. IMPRESSION Abdominal pain unclear etiology at this time, possible mild diverticulitis- discussed with the radiologist and there is no indication of this on the CT. Possible irritable bowel syndrome,referred pain dilated common bile duct on CT. Possible reservoir effect but other etiologies need to be ruled out in view of her symptomatology RECOMMENDATIONS MRCP upper endoscopy and colonoscopy in the morning. Supportive care. Continue IV antibiotics. I like to thank Dr. Anam Hamilton for referring her to our office for consultation. Risks, benefits were discussed with the patient and she is agreeing with that. Further recommendation will depend on the patient's clinical status and the above results. Leidy Heredia MD BSB/KK /4:53 PM /5:53 PM MTDNadine
[2016-08-30] VITALS (8 sets, daily range): BP systolic 116–149; BP diastolic 56–68; PULSE 69–95; RESP 16–20; TEMP 97–99.1; O2SAT 94–99
[2016-08-30] MEDS: SODIUM CHLOR 0.9% 1000 ML INJ 1,000 ML IV SCH ×3 (00:35→21:29)
[2016-08-30] MEDS: HYDROmorphone HCL PF 1 MG/ML VIAL IV PUSH PRN ×5 (00:35→22:40)
[2016-08-30] MEDS: metroNIDAZOLE 500 MG INJ 100 ML IV SCH ×3 (04:43→21:28)
[2016-08-30] MEDS: ONDANSETRON HCL 4 MG/2 ML VIAL IVP PRN ×2 (04:55→21:31)
[2016-08-30] MEDS: INSULIN ASPART SUPPLEMENTAL SCALE SQ SCH ×4 (05:01→21:00)
[2016-08-30] MEDS: CIPROFLOXACIN 400 MG PREMIX 200 ML IV SCH ×2 (06:24→17:04)
[2016-08-30] MEDS: SODIUM CHLORIDE 0.9% FLUSH 5 ML FLUSH FLUSH SCH ×2 (09:00→21:00)
--- NOTE | 2016-08-30 10:10 | PD.PROCEDR ---
GI Procedure REFERRING PHYSICIAN ESTHER PROCEDURE PERFORMED EGD with biopsy followed by an incomplete colonoscopy due to poor prep to the ascending colon INDICATION FOR PROCEDURE Abdominal pain and leukocytosis PROCEDURE: The procedure, risks and benefits were discussed with Ms. Sheehan and informed consent was obtained. Anesthesia sedated her with Diprivan. She was placed in the left lateral decubitus position. EGD: The Pentax videoscope was introduced through the oropharynx and advanced to the second portion of the duodenum under direct visualization. Retroflexion was performed in the stomach. FINDINGS: The esophagus this appeared to be unremarkable and within normal limits Stomach there was some punctate erythema in the antrum but no ulcerations or erosions the rest of the gastric mucosa was unremarkable antral biopsies were taken for further evaluation The duodenum this was unremarkable Colonoscopy: The Pentax videoscope was introduced through the rectum and advanced to the proximal ascending colon. Retroflexion was performed in the rectum. Colonic prep was poor FINDINGS: As the scope was slowly withdrawn colonic mucosa was carefully inspected although this was limited it appeared to be unremarkable and within normal limits the patient was noted to have mild scattered diverticulosis throughout the colon ESTIMATED BLOOD LOSS: None SPECIMENS REMOVED: Antral biopsies COMPLICATIONS: None IMPRESSION: Mild antral gastritis nonspecific Mild scattered diverticulosis Incomplete colonoscopy PLAN: Await biopsy Repeat colonoscopy in a.m. Abdominal pain possibly related to chronic or acute back issues and may be abdominal wall pain Ankur Fan MD Aug 30, 2016 10:10
[2016-08-30] MEDS ORDERED: PROPOFOL 200 MG/20 ML AMP IV ONE (10:13)
[2016-08-30] MEDS ORDERED: PEG (High)/E-LYTE SOLN 4000 ML BTL PO ONE (10:15)
--- NOTE | 2016-08-30 11:23 | HHI.PR ---
Subjective Remarks has some lower abdominal pain. one episode of emesis earlier today. no other complaints. Objective Vitals Vital Signs Date Time Temp Pulse Resp B/P Pulse Ox O2 Delivery O2 Flow Rate FiO2 08/30/16 10:30 96 16 137/67 100 08/30/16 10:20 91 16 125/65 98 08/30/16 10:09 98.2 94 16 133/65 98 08/30/16 09:23 99.1 90 16 137/63 97 08/30/16 08:00 97.0 87 17 116/58 99 08/30/16 04:00 98.2 95 18 118/56 97 08/30/16 00:00 98.6 69 18 127/60 94 08/29/16 20:00 98.6 98 18 123/61 93 08/29/16 19:57 100 08/29/16 16:00 98.0 108 18 110/55 97 08/29/16 15:57 20 08/29/16 12:00 99.0 81 17 109/55 96 08/29/16 11:59 20 I/O 08/29/16 08/29/16 08/29/16 08/30/16 08/30/16 08/30/16 07:00 15:00 23:00 07:00 15:00 23:00 Intake Total 1151 ml 863 ml 535 ml 300 ml Output Total 200 ml 200 ml Balance 1151 ml 863 ml 335 ml -200 ml 300 ml Intake Oral 240 ml 240 ml 240 ml IV Total 911 ml 623 ml 295 ml Other 300 ml Output Urine Total 200 ml 200 ml # Voids 1 3 # Bowel Movements 0 0 0 2 Result Diagram: 08/29/16 0343 08/29/16 0343 Imaging Last Impressions Cholangiopancreatography MRI 08/29/16 0000 Signed Impressions: Service Date/Time: Monday, August 29, 2016 14:00 - CONCLUSION: 1. Status post cholecystectomy. 2. The common bile duct measures 1.3 cm with no definite filling defects. No definite dilated biliary ducts. This is most likely reservoir effect secondary to cholecystectomy. Recommend correlation with liver laboratory values. If this does not correlate clinically, ERCP could be performed for further evaluation. Ady Her MD Chest X-Ray 08/28/16 1632 Signed Impressions: Service Date/Time: Sunday, August 28, 2016 16:53 - CONCLUSION: The lungs are clear. Jb Almeida MD Abdomen/Pelvis CT 08/28/16 1632 Signed Impressions: Service Date/Time: Sunday, August 28, 2016 18:20 - CONCLUSION: 1. Dilation of the common bile duct up to 12 mm. Prior cholecystectomy. No filling defects seen in the common bile duct, but there is a possible fullness seen in the region of the ampulla. Recommend direct visualization of the ampulla with ERCP. 2. Questionable induration along the superior margin of the proximal sigmoid colon with multiple diverticula in the sigmoid colon. Cannot exclude diverticulitis on the basis of the scan. No evidence of free fluid. Jb Almeida MD Objective Remarks GENERAL: This is a well-nourished, well-developed patient, in no apparent distress. CARDIOVASCULAR: Regular rate and regular rhythm without murmurs, gallops, or rubs. RESPIRATORY: Clear to auscultation. Breath sounds equal bilaterally. No wheezes , rales, or rhonchi. GASTROINTESTINAL: Abdomen soft,mild lower abdominal tenderness, nondistended. Normal, active bowel sounds MUSCULOSKELETAL: Extremities without clubbing, cyanosis, or edema. NEURO: Alert & Oriented x4 to person, place, time, situation. Moves all ext x4 Procedures EGD/ colonoscopy Medications and IVs Current Medications Sodium Chloride (NS 1000 ml Inj) 1,000 ml @ 1,000 mls/hr Q1H IV Last administered on 08/28/16 16:59; Start 08/28/16 at 16:32; Stop 08/28/16 at 17:31 ; Status DC Iohexol 100 ml 100 ml STK-MED ONCE IV ; Start 08/28/16 at 18:29; Stop 08/28/16 at 18:30; Status DC Metronidazole 100 ml @ 100 mls/hr ONCE ONCE IV Last administered on 19:21; Start 08/28/16 at 19:15; Stop 08/28/16 at 20:14; Status DC Ciprofloxacin/ Dextrose (Cipro 200 Mg Premix) 100 ml @ 100 mls/hr ONCE ONCE IV Last administered on 08/28/16 20:55; Start 08/28/16 at 19:15; Stop at 20:14; Status DC Morphine Sulfate (Morphine Inj) 4 mg ONCE ONCE IV PUSH Last administered on 19:20; Start 08/28/16 at 19:15; Stop 08/28/16 at 19:16; Status DC Ondansetron HCl (Zofran Inj) 4 mg ONCE ONCE IV PUSH Last administered on 19:20; Start 08/28/16 at 19:15; Stop 08/28/16 at 19:16; Status DC Dextrose (D50w (Vial) Inj) 25 ml UNSCH PRN IV PUSH HYPOGLYCEMIA-SEE COMMENTS; Start 08/28/16 at 19:45 Glucagon (Glucagon Inj) 1 mg UNSCH PRN OTHER HYPOGLYCEMIA-SEE COMMENTS; Start 08/28/16 at 19:45 Insulin Aspart 1 1 ACHS SLIDING SCALE SQ Last administered on 08/28/16 20:40 ; Start 08/28/16 at 21:00 Ciprofloxacin/ Dextrose 200 ml @ 200 mls/hr Q12H IV Last administered on 06:24; Start 08/29/16 at 07:00 Metronidazole 100 ml @ 100 mls/hr Q8H IV Last administered on 08/30/16 04:43 ; Start 08/29/16 at 05:00 Sodium Chloride (NS 1000 ml Inj) 1,000 ml @ 100 mls/hr Q10H IV Last administered on 08/30/16 00:35; Start 08/28/16 at 19:32 IV Flush (NS Flush) 2 ml UNSCH PRN FLUSH FLUSH AFTER USING IV ACCESS Last administered on 08/28/16 21:37; Start 08/28/16 at 19:45 IV Flush (NS Flush) 2 ml BID FLUSH ; Start 08/28/16 at 21:00 Ondansetron HCl (Zofran Inj) 4 mg Q6H PRN IVP NAUSEA OR VOMITING Last administered on 08/30/16 04:55; Start 08/28/16 at 19:45 Bisacodyl (Dulcolax Supp) 10 mg DAILY PRN [place] CONSTIPATION; Start 08/28/16 at 19 :45 Acetaminophen (Tylenol) 650 mg Q6H PRN PO FEVER/PAIN SCALE 1 TO 2 Last administered on 08/29/16 08:26; Start 08/28/16 at 19:45 Acetaminophen/ Hydrocodone Bitart ([place] 5-325 Mg) 1 tab Q4H PRN PO PAIN SCALE 3 TO 5; Start 08/28/16 at 19:45 Morphine Sulfate (Morphine Inj) 2 mg Q3H PRN IV Pain 6-10 Last administered on 08/29/16 11:54; Start 08/28/16 at 19:45; Stop 08/29/16 at 13:30; Status DC Polyethylene Glycol/ Electrolytes (Colyte Liq) 4,000 ml ONCE ONCE PO Last administered on 08/29/16 13:18; Start 08/29/16 at 13:00; Stop 08/29/16 at 13:01 ; Status DC Hydromorphone HCl 1 mg 1 mg Q4H PRN IV PUSH PAIN >5 Last administered on 08:45; Start 08/29/16 at 13:30 Lactated Ringer's (Lr 1000 ml Inj) 1,000 ml @ 30 mls/hr Q24H IV ; Start at 06:00 Polyethylene Glycol/ Electrolytes (Colyte Liq) 4,000 ml ONCE ONCE PO ; Start at 10:15; Stop 08/30/16 at 10:16; Status DC Propofol (Diprivan 200 Mg/20 ml Inj) 450 mg STK-MED ONCE IV ; Start 08/30/16 at 10:13; Stop 08/30/16 at 10:14; Status DC A/P Assessment and Plan A/P - Sepsis likely due to Diverticulitis: Lower abdominal pain x1 wk, CT Abd/Pelvis w/ questionable induration along proximal sigmoid colon suggestive of diverticulitis, also noted to have CBD dilatation w/ possible fullness of ampulla for which ERCP was recommended. Pt w / no RUQ pain. Will continue w/ IV Abx for Diverticulitis. Analgesics/ antiemetics. MRCP with Status post cholecystectomy. The common bile duct measures 1.3 cm with no definite filling defects. No definite dilated biliary ducts. This is most likely reservoir effect secondary to cholecystectomy. GI consulted- s/p EGD with gastritis and colonoscopy which was a poor-prep- plan for repeating colonos tomorrow. - DM: Sliding scale w/ Accu-Cheks, hold Metformin/Glipizide in light of Sepsis and decreased PO intake. -hypothyroidism; resume home meds upon discharge. - DVT Prophylaxis: SCD/Teds. Mallory Hamilton MD Aug 30, 2016 11:23
[2016-08-30] MEDS ORDERED: HYDROmorphone HCL PF 1 MG/ML VIAL IV PUSH ONE (11:30)
[2016-08-31] VITALS: BP 128/68; PULSE 82; RESP 20; TEMP 97.8; O2SAT 96
[2016-08-31] MEDS: HYDROmorphone HCL PF 1 MG/ML VIAL IV PUSH PRN ×5 (03:01→21:48)
[2016-08-31] MEDS: ONDANSETRON HCL 4 MG/2 ML VIAL IVP PRN (03:07)
[2016-08-31] MEDS: metroNIDAZOLE 500 MG INJ 100 ML IV SCH ×4 (05:29→21:37)
[2016-08-31 05:52] LABS: HEMATOCRIT 40.6 % (35.0-46.0); MEAN CELL VOLUME 90.1 FL (80.0-100.0); MEAN CORPUSCULAR HEMOGLOBIN 29.5 PG (27.0-34.0); MEAN CORPUSCULAR HGB CONC 32.7 % (32.0-36.0); PLATELET COUNT 232 TH/MM3 (150-450); RED BLOOD COUNT 4.51 MIL/MM3 (4.00-5.30); RED CELL DISTRIBUTION WIDTH 13.2 % (11.6-17.2); REVIEW FLAG FINAL; WHITE BLOOD COUNT 11.1 TH/MM3 (4.0-11.0)
[2016-08-31] MEDS: LACTATED RINGER'S 1000 ML IV SCH (06:00)
[2016-08-31] MEDS: CIPROFLOXACIN 400 MG PREMIX 200 ML IV SCH ×2 (06:49→18:22)
[2016-08-31] MEDS: INSULIN ASPART SUPPLEMENTAL SCALE SQ SCH ×4 (07:00→21:48)
[2016-08-31] MEDS: SODIUM CHLOR 0.9% 1000 ML INJ 1,000 ML IV SCH ×2 (07:32→17:32)
--- NOTE | 2016-08-31 07:56 | HHI.PR ---
Subjective Remarks resting comfortably with no distress. still with some abdominal pain. awaiting colonoscopy. Objective Vitals Vital Signs Date Time Temp Pulse Resp B/P Pulse Ox O2 Delivery O2 Flow Rate FiO2 08/31/16 03:38 18 08/31/16 00:00 97.8 82 20 128/68 96 08/30/16 21:20 84 08/30/16 20:00 98.8 84 20 149/68 97 08/30/16 16:00 98.6 88 16 137/63 99 08/30/16 12:00 98.5 85 16 123/59 95 08/30/16 10:30 96 16 137/67 100 08/30/16 10:20 91 16 125/65 98 08/30/16 10:09 98.2 94 16 133/65 98 08/30/16 09:23 99.1 90 16 137/63 97 08/30/16 08:00 97.0 87 17 116/58 99 I/O 08/30/16 08/30/16 08/30/16 08/31/16 08/31/16 08/31/16 07:00 15:00 23:00 07:00 15:00 23:00 Intake Total 1520 ml 2187 ml 832 ml Output Total 200 ml 500 ml 400 ml Balance -200 ml 1520 ml 1687 ml 432 ml Intake Oral 360 ml 240 ml 0 ml IV Total 860 ml 1947 ml 832 ml Other 300 ml Output Urine Total 200 ml 500 ml 400 ml # Voids 3 # Bowel Movements 2 1 0 0 Result Diagram: 08/31/16 0448 08/29/16 0343 Imaging Last Impressions Cholangiopancreatography MRI 08/29/16 0000 Signed Impressions: Service Date/Time: Monday, August 29, 2016 14:00 - CONCLUSION: 1. Status post cholecystectomy. 2. The common bile duct measures 1.3 cm with no definite filling defects. No definite dilated biliary ducts. This is most likely reservoir effect secondary to cholecystectomy. Recommend correlation with liver laboratory values. If this does not correlate clinically, ERCP could be performed for further evaluation. Ady Her MD Chest X-Ray 08/28/16 1632 Signed Impressions: Service Date/Time: Sunday, August 28, 2016 16:53 - CONCLUSION: The lungs are clear. Jb Almeida MD Abdomen/Pelvis CT 08/28/16 9870 Signed Impressions: Service Date/Time: Sunday, August 28, 2016 18:20 - CONCLUSION: 1. Dilation of the common bile duct up to 12 mm. Prior cholecystectomy. No filling defects seen in the common bile duct, but there is a possible fullness seen in the region of the ampulla. Recommend direct visualization of the ampulla with ERCP. 2. Questionable induration along the superior margin of the proximal sigmoid colon with multiple diverticula in the sigmoid colon. Cannot exclude diverticulitis on the basis of the scan. No evidence of free fluid. Jb Almeida MD Objective Remarks GENERAL: This is a well-nourished, well-developed patient, in no apparent distress. CARDIOVASCULAR: Regular rate and regular rhythm without murmurs, gallops, or rubs. RESPIRATORY: Clear to auscultation. Breath sounds equal bilaterally. No wheezes , rales, or rhonchi. GASTROINTESTINAL: Abdomen soft,mild lower abdominal tenderness, nondistended. Normal, active bowel sounds MUSCULOSKELETAL: Extremities without clubbing, cyanosis, or edema. NEURO: Alert & Oriented x4 to person, place, time, situation. Moves all ext x4 Procedures EGD/ colonoscopy Medications and IVs Current Medications Sodium Chloride (NS 1000 ml Inj) 1,000 ml @ 1,000 mls/hr Q1H IV Last administered on 08/28/16 16:59; Start 08/28/16 at 16:32; Stop 08/28/16 at 17:31 ; Status DC Iohexol 100 ml 100 ml STK-MED ONCE IV ; Start 08/28/16 at 18:29; Stop 08/28/16 at 18:30; Status DC Metronidazole 100 ml @ 100 mls/hr ONCE ONCE IV Last administered on 19:21; Start 08/28/16 at 19:15; Stop 08/28/16 at 20:14; Status DC Ciprofloxacin/ Dextrose (Cipro 200 Mg Premix) 100 ml @ 100 mls/hr ONCE ONCE IV Last administered on 08/28/16 20:55; Start 08/28/16 at 19:15; Stop at 20:14; Status DC Morphine Sulfate (Morphine Inj) 4 mg ONCE ONCE IV PUSH Last administered on 19:20; Start 08/28/16 at 19:15; Stop 08/28/16 at 19:16; Status DC Ondansetron HCl (Zofran Inj) 4 mg ONCE ONCE IV PUSH Last administered on 19:20; Start 08/28/16 at 19:15; Stop 08/28/16 at 19:16; Status DC Dextrose (D50w (Vial) Inj) 25 ml UNSCH PRN IV PUSH HYPOGLYCEMIA-SEE COMMENTS; Start 08/28/16 at 19:45 Glucagon (Glucagon Inj) 1 mg UNSCH PRN OTHER HYPOGLYCEMIA-SEE COMMENTS; Start 08/28/16 at 19:45 Insulin Aspart 1 1 ACHS SLIDING SCALE SQ Last administered on 08/28/16 20:40 ; Start 08/28/16 at 21:00 Ciprofloxacin/ Dextrose 200 ml @ 200 mls/hr Q12H IV Last administered on 06:49; Start 08/29/16 at 07:00 Metronidazole 100 ml @ 100 mls/hr Q8H IV Last administered on 08/31/16 05:29 ; Start 08/29/16 at 05:00 Sodium Chloride (NS 1000 ml Inj) 1,000 ml @ 100 mls/hr Q10H IV Last administered on 08/30/16 13:23; Start 08/28/16 at 19:32 IV Flush (NS Flush) 2 ml UNSCH PRN FLUSH FLUSH AFTER USING IV ACCESS Last administered on 08/28/16 21:37; Start 08/28/16 at 19:45 IV Flush (NS Flush) 2 ml BID FLUSH ; Start 08/28/16 at 21:00 Ondansetron HCl (Zofran Inj) 4 mg Q6H PRN IVP NAUSEA OR VOMITING Last administered on 08/31/16 03:07; Start 08/28/16 at 19:45 Bisacodyl (Dulcolax Supp) 10 mg DAILY PRN [place] CONSTIPATION; Start 08/28/16 at 19 :45 Acetaminophen (Tylenol) 650 mg Q6H PRN PO FEVER/PAIN SCALE 1 TO 2 Last administered on 08/29/16 08:26; Start 08/28/16 at 19:45 Acetaminophen/ Hydrocodone Bitart ([place] 5-325 Mg) 1 tab Q4H PRN PO PAIN SCALE 3 TO 5 Last administered on 08/30/16 16:59; Start 08/28/16 at 19:45 Morphine Sulfate (Morphine Inj) 2 mg Q3H PRN IV Pain 6-10 Last administered on 08/29/16 11:54; Start 08/28/16 at 19:45; Stop 08/29/16 at 13:30; Status DC Polyethylene Glycol/ Electrolytes (Colyte Liq) 4,000 ml ONCE ONCE PO Last administered on 08/29/16 13:18; Start 08/29/16 at 13:00; Stop 08/29/16 at 13:01 ; Status DC Hydromorphone HCl 1 mg 1 mg Q4H PRN IV PUSH PAIN >5 Last administered on 03:01; Start 08/29/16 at 13:30 Lactated Ringer's (Lr 1000 ml Inj) 1,000 ml @ 30 mls/hr Q24H IV ; Start at 06:00 Polyethylene Glycol/ Electrolytes (Colyte Liq) 4,000 ml ONCE ONCE PO Last administered on 08/30/16 11:53; Start 08/30/16 at 10:15; Stop 08/30/16 at 10:16 ; Status DC Propofol (Diprivan 200 Mg/20 ml Inj) 450 mg STK-MED ONCE IV ; Start 08/30/16 at 10:13; Stop 08/30/16 at 10:14; Status DC Hydromorphone HCl (Dilaudid Pf Inj) 0.2 mg ONCE ONCE IV PUSH ; Start 08/30/16 at 11:30; Stop 08/30/16 at 11:31; Status DC A/P Assessment and Plan A/P - Sepsis possibly due to Diverticulitis: Lower abdominal pain. CT Abd/Pelvis w/ questionable induration along proximal sigmoid colon suggestive of diverticulitis, also noted to have CBD dilatation w/ possible fullness of ampulla for which ERCP was recommended. Will continue w/ IV Abx for Diverticulitis. Analgesics/antiemetics. MRCP with Status post cholecystectomy. The common bile duct measures 1.3 cm with no definite filling defects. No definite dilated biliary ducts. This is most likely reservoir effect secondary to cholecystectomy. GI consulted- s/p EGD with gastritis and colonoscopy which was a poor-prep- plan for repeating colonoscopy today. - DM: Sliding scale w/ Accu-Cheks, hold Metformin/Glipizide in light of Sepsis and decreased PO intake. -hypothyroidism; resume home meds upon discharge. - DVT Prophylaxis: SCD/Teds. Discharge Planning pending colonoscopy and GI recommendations. Mallory Hamilton MD Aug 31, 2016 07:56
[2016-08-31 08:00] VITALS: BP 139/58; PULSE 82; RESP 20; TEMP 98.7; O2SAT 94
[2016-08-31] MEDS: SODIUM CHLORIDE 0.9% FLUSH 5 ML FLUSH FLUSH SCH ×2 (08:26→21:48)
[2016-08-31 12:00] VITALS: BP 120/56; PULSE 82; RESP 20; TEMP 97.2; O2SAT 99
[2016-08-31] MEDS ORDERED: PROPOFOL 200 MG/20 ML AMP IV ONE (16:34)
--- NOTE | 2016-08-31 17:31 | PD.PROCEDR ---
GI Procedure REFERRING PHYSICIAN Félix PROCEDURE PERFORMED Colonoscopy INDICATION FOR PROCEDURE Abdominal pain and history of polyps PROCEDURE: The procedure, risks and benefits were discussed with Ms. Sheehan and informed consent was obtained. Anesthesia sedated her with Diprivan. She was placed in the left lateral decubitus position. Colonoscopy: The Pentax videoscope was introduced through the rectum and advanced to cecum where the ileocecal valve and appendiceal orifice were identified. Retroflexion was performed in the rectum. Colonic prep was fair FINDINGS: Colonic withdrawal time greater than 6 minutes as the scope was slowly withdrawn colonic mucosa was carefully inspected this was noted to be unremarkable and within normal limits the whole way through so as retroflexion in rectal examination patient was noted to have mild diverticulosis of the sigmoid and descending colon and to a lesser extent ascending colon ESTIMATED BLOOD LOSS: None SPECIMENS REMOVED: None COMPLICATIONS: None IMPRESSION: Diverticulosis PLAN: Supportive care Colonoscopy in 3 years Ankur Fan MD Aug 31, 2016 17:31
[2016-08-31 20:00] VITALS: BP 139/63; PULSE 96; RESP 20; TEMP 101; O2SAT 95
[2016-08-31 20:10] VITALS: O2SAT 97
[2016-08-31 21:35] VITALS: PULSE 90
[2016-08-31] MEDS: ACETAMINOPHEN 325 MG TAB PO PRN (21:52)
[2016-09-01] VITALS (7 sets, daily range): BP systolic 120–129; BP diastolic 57–74; PULSE 75–94; RESP 17–20; TEMP 97.8–100.3; O2SAT 95–99
[2016-09-01] MEDS: HYDROmorphone HCL PF 1 MG/ML VIAL IV PUSH PRN ×4 (02:15→20:11)
[2016-09-01] MEDS: SODIUM CHLOR 0.9% 1000 ML INJ 1,000 ML IV SCH ×3 (04:15→20:22)
[2016-09-01] MEDS: metroNIDAZOLE 500 MG INJ 100 ML IV SCH ×3 (05:35→20:11)
[2016-09-01] MEDS: LACTATED RINGER'S 1000 ML IV SCH (06:00)
[2016-09-01] MEDS: CIPROFLOXACIN 400 MG PREMIX 200 ML IV SCH ×2 (06:25→18:15)
[2016-09-01] MEDS: INSULIN ASPART SUPPLEMENTAL SCALE SQ SCH ×4 (06:26→20:18)
[2016-09-01] MEDS: SODIUM CHLORIDE 0.9% FLUSH 5 ML FLUSH FLUSH SCH ×2 (08:39→20:11)
--- NOTE | 2016-09-01 09:35 | HHI.PR ---
Subjective Remarks in no distress but still with abdominal pain. noted that had a fever last night. Objective Vitals Vital Signs Date Time Temp Pulse Resp B/P Pulse Ox O2 Delivery O2 Flow Rate FiO2 09/01/16 04:00 98.5 86 20 120/74 96 09/01/16 03:05 18 09/01/16 00:00 100.3 94 20 128/68 97 08/31/16 21:35 90 08/31/16 20:10 97 21 08/31/16 20:00 101.0 96 20 139/63 95 08/31/16 17:12 86 16 160/77 97 08/31/16 17:07 Nasal Cannula 3 08/31/16 17:07 98.2 85 16 131/75 97 08/31/16 12:00 97.2 82 20 120/56 99 I/O 08/31/16 08/31/16 08/31/16 09/01/16 09/01/16 09/01/16 07:00 15:00 23:00 07:00 15:00 23:00 Intake Total 832 ml 1793 ml 240 ml Output Total 400 ml 400 ml 550 ml Balance 432 ml 1393 ml -310 ml Intake Oral 0 ml 240 ml 240 ml IV Total 832 ml 1553 ml Output Urine Total 400 ml 400 ml 550 ml # Bowel Movements 0 0 0 Result Diagram: 08/31/16 0448 08/29/16 0343 Imaging Last Impressions Cholangiopancreatography MRI 08/29/16 0000 Signed Impressions: Service Date/Time: Monday, August 29, 2016 14:00 - CONCLUSION: 1. Status post cholecystectomy. 2. The common bile duct measures 1.3 cm with no definite filling defects. No definite dilated biliary ducts. This is most likely reservoir effect secondary to cholecystectomy. Recommend correlation with liver laboratory values. If this does not correlate clinically, ERCP could be performed for further evaluation. Ady Her MD Chest X-Ray 08/28/16 1632 Signed Impressions: Service Date/Time: Sunday, August 28, 2016 16:53 - CONCLUSION: The lungs are clear. Jb Almeida MD Abdomen/Pelvis CT 08/28/16 1632 Signed Impressions: Service Date/Time: Sunday, August 28, 2016 18:20 - CONCLUSION: 1. Dilation of the common bile duct up to 12 mm. Prior cholecystectomy. No filling defects seen in the common bile duct, but there is a possible fullness seen in the region of the ampulla. Recommend direct visualization of the ampulla with ERCP. 2. Questionable induration along the superior margin of the proximal sigmoid colon with multiple diverticula in the sigmoid colon. Cannot exclude diverticulitis on the basis of the scan. No evidence of free fluid. Jb Almeida MD Objective Remarks GENERAL: This is a well-nourished, well-developed patient, in no apparent distress. CARDIOVASCULAR: Regular rate and regular rhythm without murmurs, gallops, or rubs. RESPIRATORY: Clear to auscultation. Breath sounds equal bilaterally. No wheezes , rales, or rhonchi. GASTROINTESTINAL: Abdomen soft,mild lower abdominal tenderness, nondistended. Normal, active bowel sounds MUSCULOSKELETAL: Extremities without clubbing, cyanosis, or edema. NEURO: Alert & Oriented x4 to person, place, time, situation. Moves all ext x4 Procedures EGD/ colonoscopy Medications and IVs Current Medications Sodium Chloride (NS 1000 ml Inj) 1,000 ml @ 1,000 mls/hr Q1H IV Last administered on 08/28/16 16:59; Start 08/28/16 at 16:32; Stop 08/28/16 at 17:31 ; Status DC Iohexol 100 ml 100 ml STK-MED ONCE IV ; Start 08/28/16 at 18:29; Stop 08/28/16 at 18:30; Status DC Metronidazole 100 ml @ 100 mls/hr ONCE ONCE IV Last administered on 19:21; Start 08/28/16 at 19:15; Stop 08/28/16 at 20:14; Status DC Ciprofloxacin/ Dextrose (Cipro 200 Mg Premix) 100 ml @ 100 mls/hr ONCE ONCE IV Last administered on 08/28/16 20:55; Start 08/28/16 at 19:15; Stop at 20:14; Status DC Morphine Sulfate (Morphine Inj) 4 mg ONCE ONCE IV PUSH Last administered on 19:20; Start 08/28/16 at 19:15; Stop 08/28/16 at 19:16; Status DC Ondansetron HCl (Zofran Inj) 4 mg ONCE ONCE IV PUSH Last administered on 19:20; Start 08/28/16 at 19:15; Stop 08/28/16 at 19:16; Status DC Dextrose (D50w (Vial) Inj) 25 ml UNSCH PRN IV PUSH HYPOGLYCEMIA-SEE COMMENTS; Start 08/28/16 at 19:45 Glucagon (Glucagon Inj) 1 mg UNSCH PRN OTHER HYPOGLYCEMIA-SEE COMMENTS; Start 08/28/16 at 19:45 Insulin Aspart 1 1 ACHS SLIDING SCALE SQ Last administered on 09/01/16 06:26; Start 08/28/16 at 21:00 Ciprofloxacin/ Dextrose 200 ml @ 200 mls/hr Q12H IV Last administered on 06:25; Start 08/29/16 at 07:00 Metronidazole 100 ml @ 100 mls/hr Q8H IV Last administered on 09/01/16 05:35; Start 08/29/16 at 05:00 Sodium Chloride (NS 1000 ml Inj) 1,000 ml @ 100 mls/hr Q10H IV Last administered on 09/01/16 04:15; Start 08/28/16 at 19:32 IV Flush (NS Flush) 2 ml UNSCH PRN FLUSH FLUSH AFTER USING IV ACCESS Last administered on 08/28/16 21:37; Start 08/28/16 at 19:45 IV Flush (NS Flush) 2 ml BID FLUSH Last administered on 08/31/16 21:48; Start 08/28/16 at 21:00 Ondansetron HCl (Zofran Inj) 4 mg Q6H PRN IVP NAUSEA OR VOMITING Last administered on 08/31/16 03:07; Start 08/28/16 at 19:45 Bisacodyl (Dulcolax Supp) 10 mg DAILY PRN [place] CONSTIPATION; Start 08/28/16 at 19 :45 Acetaminophen (Tylenol) 650 mg Q6H PRN PO FEVER/PAIN SCALE 1 TO 2 Last administered on 08/31/16 21:52; Start 08/28/16 at 19:45 Acetaminophen/ Hydrocodone Bitart ([place] 5-325 Mg) 1 tab Q4H PRN PO PAIN SCALE 3 TO 5 Last administered on 08/30/16 16:59; Start 08/28/16 at 19:45 Morphine Sulfate (Morphine Inj) 2 mg Q3H PRN IV Pain 6-10 Last administered on 08/29/16 11:54; Start 08/28/16 at 19:45; Stop 08/29/16 at 13:30; Status DC Polyethylene Glycol/ Electrolytes (Colyte Liq) 4,000 ml ONCE ONCE PO Last administered on 08/29/16 13:18; Start 08/29/16 at 13:00; Stop 08/29/16 at 13:01 ; Status DC Hydromorphone HCl 1 mg 1 mg Q4H PRN IV PUSH PAIN >5 Last administered on 06:26; Start 08/29/16 at 13:30 Lactated Ringer's (Lr 1000 ml Inj) 1,000 ml @ 30 mls/hr Q24H IV ; Start at 06:00 Polyethylene Glycol/ Electrolytes (Colyte Liq) 4,000 ml ONCE ONCE PO Last administered on 08/30/16 11:53; Start 08/30/16 at 10:15; Stop 08/30/16 at 10:16 ; Status DC Propofol (Diprivan 200 Mg/20 ml Inj) 450 mg STK-MED ONCE IV ; Start 08/30/16 at 10:13; Stop 08/30/16 at 10:14; Status DC Hydromorphone HCl (Dilaudid Pf Inj) 0.2 mg ONCE ONCE IV PUSH ; Start 08/30/16 at 11:30; Stop 08/30/16 at 11:31; Status DC Propofol (Diprivan 200 Mg/20 ml Inj) 700 mg STK-MED ONCE IV ; Start 08/31/16 at 16:34; Stop 08/31/16 at 17:05; Status DC A/P Assessment and Plan A/P - Sepsis possibly due to Diverticulitis- now with recurrent fever. CT Abd/Pelvis w/ questionable induration along proximal sigmoid colon suggestive of diverticulitis, also noted to have CBD dilatation w/ possible fullness of ampulla for which ERCP was recommended. Will continue w/ IV Abx for Diverticulitis. Analgesics/antiemetics. MRCP with Status post cholecystectomy. The common bile duct measures 1.3 cm with no definite filling defects. No definite dilated biliary ducts. This is most likely reservoir effect secondary to cholecystectomy. GI consulted- s/p EGD with gastritis and colonoscopy with diverticulosis. - DM: Sliding scale w/ Accu-Cheks, hold Metformin/Glipizide in light of Sepsis and decreased PO intake. -hypothyroidism; resumed home meds upon discharge. - DVT Prophylaxis: SCD/Teds. Discharge Planning possible dc home within the next 24-48 hrs if the pain improved with no recurrent fever. Mallory Hamilton MD Sep 01, 2016 09:35
[2016-09-01] MEDS: ACETAMINOPHEN/HYDROcodone 325 MG/5 MG TAB PO PRN ×3 (10:50→23:55)
[2016-09-01] MEDS ORDERED: CALCIUM CARBONATE 500 MG CHEWABLE TAB CHEW PRN (11:00)
[2016-09-02] MEDS: HYDROmorphone HCL PF 1 MG/ML VIAL IV PUSH PRN ×4 (02:45→20:59)
[2016-09-02 04:00] VITALS: BP 136/66; PULSE 79; RESP 20; TEMP 98.6; O2SAT 97
[2016-09-02] MEDS: metroNIDAZOLE 500 MG INJ 100 ML IV SCH ×3 (04:54→20:29)
[2016-09-02] MEDS: ACETAMINOPHEN/HYDROcodone 325 MG/5 MG TAB PO PRN ×5 (04:55→22:38)
[2016-09-02] MEDS: LACTATED RINGER'S 1000 ML IV SCH (04:55)
[2016-09-02] MEDS: CIPROFLOXACIN 400 MG PREMIX 200 ML IV SCH ×2 (04:55→18:01)
[2016-09-02] MEDS: INSULIN ASPART SUPPLEMENTAL SCALE SQ SCH ×4 (06:21→20:58)
[2016-09-02] MEDS: ONDANSETRON HCL 4 MG/2 ML VIAL IVP PRN (06:51)
[2016-09-02 07:55] VITALS: BP 140/75; PULSE 91; RESP 19; TEMP 99.3; O2SAT 95
[2016-09-02 08:46] VITALS: O2SAT 96
[2016-09-02] MEDS: SODIUM CHLOR 0.9% 1000 ML INJ 1,000 ML IV SCH ×2 (08:51→18:01)
[2016-09-02] MEDS: SODIUM CHLORIDE 0.9% FLUSH 5 ML FLUSH FLUSH SCH ×2 (08:51→20:29)
--- NOTE | 2016-09-02 09:58 | HHI.GIFU ---
Subjective Remarks Sitting up on edge of bed eating breakfast. Continues to have abdominal tenderness- states improved, but still there. States this is throughout her entire abdomen and is related to movement, not food. Tolerating diet. No n/v. Also c/o back pain. (Supriya Rodriguez) Objective Vitals I&O Vital Signs Date Time Temp Pulse Resp B/P Pulse Ox O2 Delivery O2 Flow Rate FiO2 09/02/16 07:55 99.3 91 19 140/75 95 09/02/16 04:00 98.6 79 20 136/66 97 09/01/16 22:00 97.8 77 18 125/63 96 09/01/16 20:15 77 09/01/16 20:00 99.1 83 18 121/57 95 09/01/16 19:53 21 09/01/16 12:00 98.8 78 18 125/64 99 I/O 09/01/16 09/01/16 09/01/16 09/02/16 09/02/16 09/02/16 07:00 15:00 23:00 07:00 15:00 23:00 Intake Total 240 ml 1152 ml 954 ml 1086 ml 120 ml Output Total 550 ml 725 ml 500 ml Balance -310 ml 427 ml 454 ml 1086 ml 120 ml Intake Oral 240 ml 480 ml 240 ml 240 ml 120 ml IV Total 672 ml 714 ml 846 ml Output Urine Total 550 ml 725 ml 500 ml # Voids 2 # Bowel Movements 0 0 0 0 Imaging Last Impressions Cholangiopancreatography MRI 08/29/16 0000 Signed Impressions: Service Date/Time: Monday, August 29, 2016 14:00 - CONCLUSION: 1. Status post cholecystectomy. 2. The common bile duct measures 1.3 cm with no definite filling defects. No definite dilated biliary ducts. This is most likely reservoir effect secondary to cholecystectomy. Recommend correlation with liver laboratory values. If this does not correlate clinically, ERCP could be performed for further evaluation. Ady Her MD Chest X-Ray 08/28/16 5392 Signed Impressions: Service Date/Time: Sunday, August 28, 2016 16:53 - CONCLUSION: The lungs are clear. Jb Almeida MD Abdomen/Pelvis CT 08/28/16 1632 Signed Impressions: Service Date/Time: Sunday, August 28, 2016 18:20 - CONCLUSION: 1. Dilation of the common bile duct up to 12 mm. Prior cholecystectomy. No filling defects seen in the common bile duct, but there is a possible fullness seen in the region of the ampulla. Recommend direct visualization of the ampulla with ERCP. 2. Questionable induration along the superior margin of the proximal sigmoid colon with multiple diverticula in the sigmoid colon. Cannot exclude diverticulitis on the basis of the scan. No evidence of free fluid. Jb Almeida MD Physical Exam A/Ox 3, no distress Resp. even/unlabored, CTA RRR Abdomen soft, mild to moderate diffuse tenderness, no hepatomegaly, bs x 4 MARTINEZ Skin warm/dry (Supriya Rodriguez) Assessment and Plan Plan ASSESSMENT: - Persistent abdominal pain. Abdomen/Pelvis CT (08/28/16)----> 1. Dilation of the common bile duct up to 12 mm. Prior cholecystectomy. No filling defects seen in the common bile duct, but there is a possible fullness seen in the region of the ampulla. Recommend direct visualization of the ampulla with ERCP. 2. Questionable induration along the superior margin of the proximal sigmoid colon with multiple diverticula in the sigmoid colon. Cannot exclude diverticulitis on the basis of the scan. No evidence of free fluid. MRCP (08/29/16)----> 1. Status post cholecystectomy. 2. The common bile duct measures 1.3 cm with no definite filling defects. No definite dilated biliary ducts. This is most likely reservoir effect secondary to cholecystectomy. Recommend correlation with liver laboratory values. If this does not correlate clinically, ERCP could be performed for further evaluation. S/P EGD/Incomplete Colonoscopy (08/30/16)-----> Mild antral gastritis nonspecific, Mild scattered diverticulosis, Incomplete colonoscopy. S/P Colonoscopy (08/31/16)---> diverticulosis. Low grade fever, mild leukcytosis. Pt continues to have pain. ? Referred pain- related to movement, not food. Also with back pain. Will get repeat CT for FU. PLAN: - ZAK - Rpt. CT scan abdomen/pelvis - PPI - Supportive care - Pt seen and examined by Dr. Fan and myself and this note is written on his behalf (Supriya Rodriguez) Physician Comments Patient seen and examined Agree with above Continue with current supportive care Monitor labs Somewhat perplexing that CT which showed worsening diverticulitis or his colonoscopy did not show any acute infection or inflammation At this point in time we'll defer change of antibiotics or continuing with the same regimen to attending physician or infectious disease (Ankur Fan MD) Supriya Rodriguez Sep 02, 2016 09:58 Ankur Fan MD Sep 02, 2016 21:32
[2016-09-02] MEDS ORDERED: DIATRIZOATE MEGLUM/DIATRIZOATE SOD 9 ML CUP PO ONE (10:02)
--- NOTE | 2016-09-02 10:09 | HHI.PR ---
Subjective Remarks resting comfortably with no distress. abdominal pain has improved. no fever. no nausea or vomiting. Objective Vitals Vital Signs Date Time Temp Pulse Resp B/P Pulse Ox O2 Delivery O2 Flow Rate FiO2 09/02/16 07:55 99.3 91 19 140/75 95 09/02/16 04:00 98.6 79 20 136/66 97 09/01/16 22:00 97.8 77 18 125/63 96 09/01/16 20:15 77 09/01/16 20:00 99.1 83 18 121/57 95 09/01/16 19:53 21 09/01/16 12:00 98.8 78 18 125/64 99 I/O 09/01/16 09/01/16 09/01/16 09/02/16 09/02/16 09/02/16 07:00 15:00 23:00 07:00 15:00 23:00 Intake Total 240 ml 1152 ml 954 ml 1086 ml 120 ml Output Total 550 ml 725 ml 500 ml Balance -310 ml 427 ml 454 ml 1086 ml 120 ml Intake Oral 240 ml 480 ml 240 ml 240 ml 120 ml IV Total 672 ml 714 ml 846 ml Output Urine Total 550 ml 725 ml 500 ml # Voids 2 # Bowel Movements 0 0 0 0 Result Diagram: 08/31/16 0448 08/29/16 0343 Imaging Last Impressions Cholangiopancreatography MRI 08/29/16 0000 Signed Impressions: Service Date/Time: Monday, August 29, 2016 14:00 - CONCLUSION: 1. Status post cholecystectomy. 2. The common bile duct measures 1.3 cm with no definite filling defects. No definite dilated biliary ducts. This is most likely reservoir effect secondary to cholecystectomy. Recommend correlation with liver laboratory values. If this does not correlate clinically, ERCP could be performed for further evaluation. Ady Her MD Chest X-Ray 08/28/16 1632 Signed Impressions: Service Date/Time: Sunday, August 28, 2016 16:53 - CONCLUSION: The lungs are clear. Jb Almeida MD Abdomen/Pelvis CT 08/28/16 1632 Signed Impressions: Service Date/Time: Sunday, August 28, 2016 18:20 - CONCLUSION: 1. Dilation of the common bile duct up to 12 mm. Prior cholecystectomy. No filling defects seen in the common bile duct, but there is a possible fullness seen in the region of the ampulla. Recommend direct visualization of the ampulla with ERCP. 2. Questionable induration along the superior margin of the proximal sigmoid colon with multiple diverticula in the sigmoid colon. Cannot exclude diverticulitis on the basis of the scan. No evidence of free fluid. Jb Almeida MD Objective Remarks GENERAL: This is a well-nourished, well-developed patient, in no apparent distress. CARDIOVASCULAR: Regular rate and regular rhythm without murmurs, gallops, or rubs. RESPIRATORY: Clear to auscultation. Breath sounds equal bilaterally. No wheezes , rales, or rhonchi. GASTROINTESTINAL: Abdomen soft,mild lower abdominal tenderness, nondistended. Normal, active bowel sounds MUSCULOSKELETAL: Extremities without clubbing, cyanosis, or edema. NEURO: Alert & Oriented x4 to person, place, time, situation. Moves all ext x4 Procedures EGD/ colonoscopy Medications and IVs Current Medications Sodium Chloride (NS 1000 ml Inj) 1,000 ml @ 1,000 mls/hr Q1H IV Last administered on 08/28/16 16:59; Start 08/28/16 at 16:32; Stop 08/28/16 at 17:31 ; Status DC Iohexol 100 ml 100 ml STK-MED ONCE IV ; Start 08/28/16 at 18:29; Stop 08/28/16 at 18:30; Status DC Metronidazole 100 ml @ 100 mls/hr ONCE ONCE IV Last administered on 19:21; Start 08/28/16 at 19:15; Stop 08/28/16 at 20:14; Status DC Ciprofloxacin/ Dextrose (Cipro 200 Mg Premix) 100 ml @ 100 mls/hr ONCE ONCE IV Last administered on 08/28/16 20:55; Start 08/28/16 at 19:15; Stop at 20:14; Status DC Morphine Sulfate (Morphine Inj) 4 mg ONCE ONCE IV PUSH Last administered on 19:20; Start 08/28/16 at 19:15; Stop 08/28/16 at 19:16; Status DC Ondansetron HCl (Zofran Inj) 4 mg ONCE ONCE IV PUSH Last administered on 19:20; Start 08/28/16 at 19:15; Stop 08/28/16 at 19:16; Status DC Dextrose (D50w (Vial) Inj) 25 ml UNSCH PRN IV PUSH HYPOGLYCEMIA-SEE COMMENTS; Start 08/28/16 at 19:45 Glucagon (Glucagon Inj) 1 mg UNSCH PRN OTHER HYPOGLYCEMIA-SEE COMMENTS; Start 08/28/16 at 19:45 Insulin Aspart 1 1 ACHS SLIDING SCALE SQ Last administered on 09/02/16 06:21; Start 08/28/16 at 21:00 Ciprofloxacin/ Dextrose 200 ml @ 200 mls/hr Q12H IV Last administered on 04:55; Start 08/29/16 at 07:00 Metronidazole 100 ml @ 100 mls/hr Q8H IV Last administered on 09/02/16 04:54; Start 08/29/16 at 05:00 Sodium Chloride (NS 1000 ml Inj) 1,000 ml @ 100 mls/hr Q10H IV Last administered on 09/02/16 08:51; Start 08/28/16 at 19:32 IV Flush (NS Flush) 2 ml UNSCH PRN FLUSH FLUSH AFTER USING IV ACCESS Last administered on 08/28/16 21:37; Start 08/28/16 at 19:45 IV Flush (NS Flush) 2 ml BID FLUSH Last administered on 09/01/16 20:11; Start 08/28/16 at 21:00 Ondansetron HCl (Zofran Inj) 4 mg Q6H PRN IVP NAUSEA OR VOMITING Last administered on 09/02/16 06:51; Start 08/28/16 at 19:45 Bisacodyl (Dulcolax Supp) 10 mg DAILY PRN [place] CONSTIPATION; Start 08/28/16 at 19 :45 Acetaminophen (Tylenol) 650 mg Q6H PRN PO FEVER/PAIN SCALE 1 TO 2 Last administered on 08/31/16 21:52; Start 08/28/16 at 19:45 Acetaminophen/ Hydrocodone Bitart ([place] 5-325 Mg) 1 tab Q4H PRN PO PAIN SCALE 3 TO 5 Last administered on 08/30/16 16:59; Start 08/28/16 at 19:45 Morphine Sulfate (Morphine Inj) 2 mg Q3H PRN IV Pain 6-10 Last administered on 08/29/16 11:54; Start 08/28/16 at 19:45; Stop 08/29/16 at 13:30; Status DC Polyethylene Glycol/ Electrolytes (Colyte Liq) 4,000 ml ONCE ONCE PO Last administered on 08/29/16 13:18; Start 08/29/16 at 13:00; Stop 08/29/16 at 13:01 ; Status DC Hydromorphone HCl 1 mg 1 mg Q4H PRN IV PUSH BREAKTHROUGH PAIN Last administered on 09/02/16 06:51; Start 08/29/16 at 13:30 Lactated Ringer's (Lr 1000 ml Inj) 1,000 ml @ 30 mls/hr Q24H IV ; Start at 06:00 Polyethylene Glycol/ Electrolytes (Colyte Liq) 4,000 ml ONCE ONCE PO Last administered on 08/30/16 11:53; Start 08/30/16 at 10:15; Stop 08/30/16 at 10:16 ; Status DC Propofol (Diprivan 200 Mg/20 ml Inj) 450 mg STK-MED ONCE IV ; Start 08/30/16 at 10:13; Stop 08/30/16 at 10:14; Status DC Hydromorphone HCl (Dilaudid Pf Inj) 0.2 mg ONCE ONCE IV PUSH ; Start 08/30/16 at 11:30; Stop 08/30/16 at 11:31; Status DC Propofol (Diprivan 200 Mg/20 ml Inj) 700 mg STK-MED ONCE IV ; Start 08/31/16 at 16:34; Stop 08/31/16 at 17:05; Status DC Acetaminophen/ Hydrocodone Bitart ([place] 5-325 Mg) 2 tab Q4H PRN PO PAIN > 5 Last administered on 09/02/16 08:56; Start 09/01/16 at 09:45 Calcium Carbonate (Tums Chew) 500 mg Q12HR PRN CHEW DYSPEPSIA Last administered on 09/01/16 11:48; Start 09/01/16 at 11:00 A/P Assessment and Plan A/P - Sepsis possibly due to Diverticulitis- improving. CT Abd/Pelvis w/ questionable induration along proximal sigmoid colon suggestive of diverticulitis, also noted to have CBD dilatation w/ possible fullness of ampulla for which ERCP was recommended. Will continue w/ IV Abx for Diverticulitis. Analgesics/antiemetics. MRCP with Status post cholecystectomy. The common bile duct measures 1.3 cm with no definite filling defects. No definite dilated biliary ducts. This is most likely reservoir effect secondary to cholecystectomy. GI consulted- s/p EGD with gastritis and colonoscopy with diverticulosis. CT of the abdomen to be repeated today -per GI. - DM: Sliding scale w/ Accu-Cheks, hold Metformin/Glipizide in light of Sepsis and decreased PO intake. -hypothyroidism; resumed home meds upon discharge. - DVT Prophylaxis: SCD/Teds. Discharge Planning possible dc home later today-pending CT of the abdomen. f/u with pcp and GI upon discharge. d/w the patient. Mallory Hamilton MD Sep 02, 2016 10:09
[2016-09-02] MEDS ORDERED: METR-1 PO (10:12)
[2016-09-02] MEDS ORDERED: CIPR-9 PO (10:12)
[2016-09-02] MEDS ORDERED: METF1000 PO (10:12)
[2016-09-02 12:00] VITALS: BP 119/67; PULSE 70; RESP 20; TEMP 99.4; O2SAT 96
[2016-09-02 16:00] VITALS: BP 138/78; PULSE 72; RESP 20; TEMP 99.7; O2SAT 99
[2016-09-02] MEDS ORDERED: IOHEXOL 350 MG/ML 10 ML VIAL (for RAD DIAG) IV ONE (19:39)
--- NOTE | 2016-09-02 19:48 | RADRPT ---
EXAM DATE/TIME: 09/02/2016 19:25 [facility] COMPARISON: CT ABDOMEN & PELVIS W CONTRAST, August 28, 2016, 18:20. INDICATIONS : Abdominal pain, follow up abdomen ct from 08/28/16. IV CONTRAST: 70 cc Omnipaque 350 (iohexol) IV ORAL CONTRAST: Prescribed oral contrast ingested. RADIATION DOSE: 13.61 CTDIvol (mGy) MEDICAL HISTORY : diabetes SURGICAL HISTORY : Cholecystectomy. ENCOUNTER: Subsequent ACUITY: 4 - 6 days PAIN SCALE: 8/10 LOCATION: abdomen TECHNIQUE: Volumetric scanning of the abdomen and pelvis was performed. Using automated exposure control and ad justment of the mA and/or kV according to patient size, radiation dose was kept as low as reasonably achievable to obtain optimal diagnostic quality images. FINDINGS: LOWER LUNGS: Mild bibasilar atelectasis and a small left pleural effusion have developed LIVER: Homogeneous fatty density without lesion. There is no dilation of the biliary tree. Previous cholecy stectomy. Mild prominence of the common bile duct unchanged. SPLEEN: Normal size without lesion. PANCREAS: Within normal limits. KIDNEYS: Normal in size and shape. There is no mass, stone or hydronephrosis. ADRENAL GLANDS: Within normal limits. VASCULAR: There is no aortic aneurysm. BOWEL/MESENTERY: Acute diverticulitis of the proximal sigmoid colon is now clearly apparent, moderate severity. No abs cess, perforation or obstruction demonstrated. ABDOMINAL WALL: Within normal limits. RETROPERITONEUM: There is no lymphadenopathy. BLADDER: No wall thickening or mass. REPRODUCTIVE: Within normal limits. INGUINAL: There is no lymphadenopathy or hernia. MUSCULOSKELETAL: Within normal limits for patient age. CONCLUSION: 1. Worsening acute diverticulitis of the proximal sigmoid colon, currently moderately severe but unco mplicated. 2. Liver is fatty. 3. Small left pleural effusion and mild bibasilar atelectasis have developed. 4. No significant change mild prominence of the common bile duct, probably reservoir type effect afte r cholecystectomy. Volodymyr Price MD on September 02, 2016 at 19:43 Board Certified Radiologist. This report was verified electronically.
[2016-09-02 20:00] VITALS: BP 124/58; PULSE 70; RESP 22; TEMP 97.9; O2SAT 95
[2016-09-03] VITALS: BP 134/63; PULSE 77; RESP 22; TEMP 98.4; O2SAT 95
[2016-09-03 04:00] VITALS: BP 146/84; PULSE 86; RESP 22; TEMP 98.2; O2SAT 95
[2016-09-03] MEDS: ACETAMINOPHEN/HYDROcodone 325 MG/5 MG TAB PO PRN ×5 (04:13→21:46)
[2016-09-03] MEDS: SODIUM CHLOR 0.9% 1000 ML INJ 1,000 ML IV SCH ×2 (04:14→14:18)
[2016-09-03] MEDS: metroNIDAZOLE 500 MG INJ 100 ML IV SCH ×3 (04:14→21:46)
[2016-09-03] MEDS: LACTATED RINGER'S 1000 ML IV SCH (04:14)
[2016-09-03] MEDS: CIPROFLOXACIN 400 MG PREMIX 200 ML IV SCH ×2 (05:21→18:09)
[2016-09-03] MEDS: INSULIN ASPART SUPPLEMENTAL SCALE SQ SCH ×4 (05:21→21:46)
[2016-09-03] MEDS: HYDROmorphone HCL PF 1 MG/ML VIAL IV PUSH PRN ×3 (05:22→16:11)
[2016-09-03 07:41] VITALS: BP 145/84; PULSE 75; RESP 19; TEMP 98.1; O2SAT 96
[2016-09-03] MEDS: SODIUM CHLORIDE 0.9% FLUSH 5 ML FLUSH FLUSH SCH ×2 (09:00→21:47)
--- NOTE | 2016-09-03 09:00 | HHI.PR ---
Subjective Remarks mild lower abdominal pain. no nausea,vomiting or fever. Objective Vitals Vital Signs Date Time Temp Pulse Resp B/P Pulse Ox O2 Delivery O2 Flow Rate FiO2 09/03/16 07:41 98.1 75 19 145/84 96 09/03/16 04:00 98.2 86 22 146/84 95 09/03/16 00:00 98.4 77 22 134/63 95 09/02/16 20:00 97.9 70 22 124/58 95 09/02/16 16:00 99.7 72 20 138/78 99 09/02/16 12:00 99.4 70 20 119/67 96 I/O 09/02/16 09/02/16 09/02/16 09/03/16 09/03/16 09/03/16 07:00 15:00 23:00 07:00 15:00 23:00 Intake Total 1086 ml 1931 ml 1115 ml 1157 ml 120 ml Output Total 420 ml Balance 1086 ml 1511 ml 1115 ml 1157 ml 120 ml Intake Oral 240 ml 1080 ml 480 ml 480 ml 120 ml IV Total 846 ml 851 ml 635 ml 677 ml Output Urine Total 420 ml # Voids 2 2 3 # Bowel Movements 0 0 0 0 Result Diagram: 08/31/16 0448 Imaging Last Impressions Abdomen/Pelvis CT 09/02/16 0000 Signed Impressions: Service Date/Time: September 19:25 - CONCLUSION: 1. Worsening acute diverticulitis of the proximal sigmoid colon, currently moderately severe but uncomplicated. 2. Liver is fatty. 3. Small left pleural effusion and mild bibasilar atelectasis have developed. 4. No significant change mild prominence of the common bile duct, probably reservoir type effect after cholecystectomy. Volodymyr Price MD Cholangiopancreatography MRI 08/29/16 0000 Signed Impressions: Service Date/Time: Monday, August 29, 2016 14:00 - CONCLUSION: 1. Status post cholecystectomy. 2. The common bile duct measures 1.3 cm with no definite filling defects. No definite dilated biliary ducts. This is most likely reservoir effect secondary to cholecystectomy. Recommend correlation with liver laboratory values. If this does not correlate clinically, ERCP could be performed for further evaluation. Ady Her MD Chest X-Ray 08/28/16 1632 Signed Impressions: Service Date/Time: Sunday, August 28, 2016 16:53 - CONCLUSION: The lungs are clear. Jb Almeida MD Objective Remarks GENERAL: This is a well-nourished, well-developed patient, in no apparent distress. CARDIOVASCULAR: Regular rate and regular rhythm without murmurs, gallops, or rubs. RESPIRATORY: Clear to auscultation. Breath sounds equal bilaterally. No wheezes , rales, or rhonchi. GASTROINTESTINAL: Abdomen soft,mild lower abdominal tenderness, nondistended. Normal, active bowel sounds MUSCULOSKELETAL: Extremities without clubbing, cyanosis, or edema. NEURO: Alert & Oriented x4 to person, place, time, situation. Moves all ext x4 Procedures EGD/ colonoscopy Medications and IVs Current Medications Sodium Chloride (NS 1000 ml Inj) 1,000 ml @ 1,000 mls/hr Q1H IV Last administered on 08/28/16 16:59; Start 08/28/16 at 16:32; Stop 08/28/16 at 17:31 ; Status DC Iohexol 100 ml 100 ml STK-MED ONCE IV ; Start 08/28/16 at 18:29; Stop 08/28/16 at 18:30; Status DC Metronidazole 100 ml @ 100 mls/hr ONCE ONCE IV Last administered on 19:21; Start 08/28/16 at 19:15; Stop 08/28/16 at 20:14; Status DC Ciprofloxacin/ Dextrose (Cipro 200 Mg Premix) 100 ml @ 100 mls/hr ONCE ONCE IV Last administered on 08/28/16 20:55; Start 08/28/16 at 19:15; Stop at 20:14; Status DC Morphine Sulfate (Morphine Inj) 4 mg ONCE ONCE IV PUSH Last administered on 19:20; Start 08/28/16 at 19:15; Stop 08/28/16 at 19:16; Status DC Ondansetron HCl (Zofran Inj) 4 mg ONCE ONCE IV PUSH Last administered on 19:20; Start 08/28/16 at 19:15; Stop 08/28/16 at 19:16; Status DC Dextrose (D50w (Vial) Inj) 25 ml UNSCH PRN IV PUSH HYPOGLYCEMIA-SEE COMMENTS; Start 08/28/16 at 19:45 Glucagon (Glucagon Inj) 1 mg UNSCH PRN OTHER HYPOGLYCEMIA-SEE COMMENTS; Start 08/28/16 at 19:45 Insulin Aspart 1 1 ACHS SLIDING SCALE SQ Last administered on 09/03/16 05:21; Start 08/28/16 at 21:00 Ciprofloxacin/ Dextrose 200 ml @ 200 mls/hr Q12H IV Last administered on 05:21; Start 08/29/16 at 07:00 Metronidazole 100 ml @ 100 mls/hr Q8H IV Last administered on 09/03/16 04:14; Start 08/29/16 at 05:00 Sodium Chloride (NS 1000 ml Inj) 1,000 ml @ 100 mls/hr Q10H IV Last administered on 09/03/16 04:14; Start 08/28/16 at 19:32 IV Flush (NS Flush) 2 ml UNSCH PRN FLUSH FLUSH AFTER USING IV ACCESS Last administered on 08/28/16 21:37; Start 08/28/16 at 19:45 IV Flush (NS Flush) 2 ml BID FLUSH Last administered on 09/01/16 20:11; Start 08/28/16 at 21:00 Ondansetron HCl (Zofran Inj) 4 mg Q6H PRN IVP NAUSEA OR VOMITING Last administered on 09/02/16 06:51; Start 08/28/16 at 19:45 Bisacodyl (Dulcolax Supp) 10 mg DAILY PRN [place] CONSTIPATION Last administered on 09/03/16 05:46; Start 08/28/16 at 19:45 Acetaminophen (Tylenol) 650 mg Q6H PRN PO FEVER/PAIN SCALE 1 TO 2 Last administered on 08/31/16 21:52; Start 08/28/16 at 19:45 Acetaminophen/ Hydrocodone Bitart ([place] 5-325 Mg) 1 tab Q4H PRN PO PAIN SCALE 3 TO 5 Last administered on 08/30/16 16:59; Start 08/28/16 at 19:45 Morphine Sulfate (Morphine Inj) 2 mg Q3H PRN IV Pain 6-10 Last administered on 08/29/16 11:54; Start 08/28/16 at 19:45; Stop 08/29/16 at 13:30; Status DC Polyethylene Glycol/ Electrolytes (Colyte Liq) 4,000 ml ONCE ONCE PO Last administered on 08/29/16 13:18; Start 08/29/16 at 13:00; Stop 08/29/16 at 13:01 ; Status DC Hydromorphone HCl 1 mg 1 mg Q4H PRN IV PUSH BREAKTHROUGH PAIN Last administered on 09/03/16 05:22; Start 08/29/16 at 13:30 Lactated Ringer's (Lr 1000 ml Inj) 1,000 ml @ 30 mls/hr Q24H IV ; Start at 06:00 Polyethylene Glycol/ Electrolytes (Colyte Liq) 4,000 ml ONCE ONCE PO Last administered on 08/30/16 11:53; Start 08/30/16 at 10:15; Stop 08/30/16 at 10:16 ; Status DC Propofol (Diprivan 200 Mg/20 ml Inj) 450 mg STK-MED ONCE IV ; Start 08/30/16 at 10:13; Stop 08/30/16 at 10:14; Status DC Hydromorphone HCl (Dilaudid Pf Inj) 0.2 mg ONCE ONCE IV PUSH ; Start 08/30/16 at 11:30; Stop 08/30/16 at 11:31; Status DC Propofol (Diprivan 200 Mg/20 ml Inj) 700 mg STK-MED ONCE IV ; Start 08/31/16 at 16:34; Stop 08/31/16 at 17:05; Status DC Acetaminophen/ Hydrocodone Bitart ([place] 5-325 Mg) 2 tab Q4H PRN PO PAIN > 5 Last administered on 09/03/16 04:13; Start 09/01/16 at 09:45 Calcium Carbonate (Tums Chew) 500 mg Q12HR PRN CHEW DYSPEPSIA Last administered on 09/01/16 11:48; Start 09/01/16 at 11:00 Diatrizoate Meglum/ Diatrizoate Sod ( [place]astro[place] Liq) 18 ml ONCE ONCE PO Last administered on 09/02/16 11:50; Start 09/02/16 at 10:02; Stop 09/02/16 at 10: 46; Status DC Iohexol (Omnipaque 350 Inj) 70 ml STK-MED ONCE IV Last administered on 2/2/ 17at 19:39; Start 09/02/16 at 19:39; Stop 09/02/16 at 19:40; Status DC A/P Assessment and Plan A/P - Sepsis possibly due to Diverticulitis- clinically improving although the repeat CT abdomen with worsening diverticulitis initial CT Abd/Pelvis w/ questionable induration along proximal sigmoid colon suggestive of diverticulitis, also noted to have CBD dilatation w/ possible fullness of ampulla for which ERCP was recommended. Will continue w/ IV Abx . Analgesics/antiemetics. MRCP with Status post cholecystectomy. The common bile duct measures 1.3 cm with no definite filling defects. No definite dilated biliary ducts. This is most likely reservoir effect secondary to cholecystectomy. GI consulted- s/p EGD with gastritis and colonoscopy with diverticulosis. - DM: Sliding scale w/ Accu-Cheks, hold Metformin/Glipizide in light of Sepsis and decreased PO intake. -hypothyroidism; resumed home meds upon discharge. - DVT Prophylaxis: SCD/Teds. Discharge Planning not ready for discharge yet. Mallory Hamilton MD Sep 03, 2016 09:00
[2016-09-03 09:55] LABS: AUTOMATED NEUTROPHIL # 4.7 TH/MM3 (1.8-7.7); BASOPHIL % 0.6 % (0.0-2.0); EOSINOPHIL # 0.1 TH/MM3 (0-0.4); EOSINOPHIL % 0.9 % (0.0-4.0); HEMATOCRIT 36.7 % (35.0-46.0); HEMO FLAGS DIFF FINAL; LYMPH % 12.4 % (9.0-44.0); LYMPHOCYTE # 0.7 TH/MM3 (1.0-4.8); MEAN CELL VOLUME 88.3 FL (80.0-100.0); MEAN CORPUSCULAR HEMOGLOBIN 30.4 PG (27.0-34.0); MEAN CORPUSCULAR HGB CONC 34.5 % (32.0-36.0); MONO % 6.7 % (0.0-8.0); NEUT % 79.4 % (16.0-70.0); PLATELET COUNT 256 TH/MM3 (150-450); RED BLOOD COUNT 4.15 MIL/MM3 (4.00-5.30); WHITE BLOOD COUNT 5.9 TH/MM3 (4.0-11.0)
[2016-09-03 11:41] VITALS: BP 125/66; PULSE 65; RESP 20; TEMP 99; O2SAT 97
--- NOTE | 2016-09-03 13:56 | HHI.GIFU ---
Subjective Remarks Resting in bed. Having some abdominal discomfort in RLQ, lower abdomen and right sciatica pain. No n/v. Tolerating diet. More r/t movement (Supriya Rodriguez) Objective Vitals I&O Vital Signs Date Time Temp Pulse Resp B/P Pulse Ox O2 Delivery O2 Flow Rate FiO2 09/03/16 11:41 99.0 65 20 125/66 97 09/03/16 07:41 98.1 75 19 145/84 96 09/03/16 04:00 98.2 86 22 146/84 95 09/03/16 00:00 98.4 77 22 134/63 95 09/02/16 20:00 97.9 70 22 124/58 95 09/02/16 16:00 99.7 72 20 138/78 99 I/O 09/02/16 09/02/16 09/02/16 09/03/16 09/03/16 09/03/16 07:00 15:00 23:00 07:00 15:00 23:00 Intake Total 1086 ml 1931 ml 1115 ml 1157 ml 120 ml Output Total 420 ml Balance 1086 ml 1511 ml 1115 ml 1157 ml 120 ml Intake Oral 240 ml 1080 ml 480 ml 480 ml 120 ml IV Total 846 ml 851 ml 635 ml 677 ml Output Urine Total 420 ml # Voids 2 2 3 # Bowel Movements 0 0 0 0 Laboratory Laboratory Tests Test 09/03/16 09:30 White Blood Count 5.9 Red Blood Count 4.15 Hemoglobin 12.6 Hematocrit 36.7 Mean Corpuscular Volume 88.3 Mean Corpuscular Hemoglobin 30.4 Mean Corpuscular Hemoglobin 34.5 Concent Red Cell Distribution Width 13.0 Platelet Count 256 Mean Platelet Volume 7.7 Neutrophils (%) (Auto) 79.4 Lymphocytes (%) (Auto) 12.4 Monocytes (%) (Auto) 6.7 Eosinophils (%) (Auto) 0.9 Basophils (%) (Auto) 0.6 Neutrophils # (Auto) 4.7 Lymphocytes # (Auto) 0.7 Monocytes # (Auto) 0.4 Eosinophils # (Auto) 0.1 Basophils # (Auto) 0.0 CBC Comment DIFF FINAL Differential Comment Imaging Last Impressions Abdomen/Pelvis CT 09/02/16 0000 Signed Impressions: Service Date/Time: Thursday, September 02, 2016 19:25 - CONCLUSION: 1. Worsening acute diverticulitis of the proximal sigmoid colon, currently moderately severe but uncomplicated. 2. Liver is fatty. 3. Small left pleural effusion and mild bibasilar atelectasis have developed. 4. No significant change mild prominence of the common bile duct, probably reservoir type effect after cholecystectomy. Volodymyr Price MD Cholangiopancreatography MRI 08/29/16 0000 Signed Impressions: Service Date/Time: Monday, August 29, 2016 14:00 - CONCLUSION: 1. Status post cholecystectomy. 2. The common bile duct measures 1.3 cm with no definite filling defects. No definite dilated biliary ducts. This is most likely reservoir effect secondary to cholecystectomy. Recommend correlation with liver laboratory values. If this does not correlate clinically, ERCP could be performed for further evaluation. Ady Her MD Chest X-Ray 08/28/16 1632 Signed Impressions: Service Date/Time: Sunday, August 28, 2016 16:53 - CONCLUSION: The lungs are clear. Jb Almeida MD Physical Exam A/Ox 3, no distress Resp. even/unlabored, CTA RRR Abdomen soft, mild tenderness, right side, no hepatomegaly, bs x 4 MARTINEZ Skin warm/dry (Supriya Rodriguez [employer]) Assessment and Plan Plan ASSESSMENT: - Persistent abdominal pain. Abdomen/Pelvis CT (08/28/16)----> 1. Dilation of the common bile duct up to 12 mm. Prior cholecystectomy. No filling defects seen in the common bile duct, but there is a possible fullness seen in the region of the ampulla. Recommend direct visualization of the ampulla with ERCP. 2. Questionable induration along the superior margin of the proximal sigmoid colon with multiple diverticula in the sigmoid colon. Cannot exclude diverticulitis on the basis of the scan. No evidence of free fluid. MRCP (08/29/16)----> 1. Status post cholecystectomy. 2. The common bile duct measures 1.3 cm with no definite filling defects. No definite dilated biliary ducts. This is most likely reservoir effect secondary to cholecystectomy. Recommend correlation with liver laboratory values. If this does not correlate clinically, ERCP could be performed for further evaluation. S/P EGD/Incomplete Colonoscopy (08/30/16)-----> Mild antral gastritis nonspecific, Mild scattered diverticulosis, Incomplete colonoscopy. S/P Colonoscopy (08/31/16)---> diverticulosis. Abdomen/Pelvis CT (09/02/16)---> 1. Worsening acute diverticulitis of the proximal sigmoid colon, currently moderately severe but uncomplicated. 2. Liver is fatty. 3. Small left pleural effusion and mild bibasilar atelectasis have developed. 4. No significant change mild prominence of the common bile duct, probably reservoir type effect after cholecystectomy. Low grade fever, mild leukcytosis. Pt continues to have pain although better and is more in RLQ/right sciatica pain with some mild lower abdominal pain- not consistent with CT findings. ? Referred pain - related to movement, not food. Also with back pain. ? Two separate processes. Cipro/Flagyl. Tolerating diet. PLAN: - ZAK - PPI - Cipro/Flagyl - If pain improved, okay to d/c home in am with outpatient fu - Pt seen and examined by Dr. Fan and myself and this note is written on his behalf (Supriya Rodriguez) Physician Comments Patient seen and examined Agree with above Continue with current supportive care Monitor labs (Ankur Fan MD) Supriya Rodriguez Sep 03, 2016 13:56 Ankur Fan MD Sep 03, 2016 17:32
[2016-09-03 16:00] VITALS: BP 129/69; PULSE 58; RESP 20; TEMP 98.6; O2SAT 96
[2016-09-03] MEDS: ONDANSETRON HCL 4 MG/2 ML VIAL IVP PRN (18:10)
[2016-09-03 20:00] VITALS: BP 129/69; PULSE 59; PULSE 89; PULSE 99; RESP 18; TEMP 99; O2SAT 96
[2016-09-04] VITALS: BP 108/78; PULSE 87; RESP 18; TEMP 98.4; O2SAT 96
[2016-09-04] MEDS: HYDROmorphone HCL PF 1 MG/ML VIAL IV PUSH PRN ×2 (00:51→09:22)
[2016-09-04] MEDS: SODIUM CHLOR 0.9% 1000 ML INJ 1,000 ML IV SCH ×2 (00:52→11:15)
[2016-09-04] MEDS: ACETAMINOPHEN/HYDROcodone 325 MG/5 MG TAB PO PRN ×2 (02:11→06:34)
[2016-09-04 03:58] VITALS: BP 138/72; PULSE 69; RESP 17; TEMP 97.6; O2SAT 96
[2016-09-04] MEDS: metroNIDAZOLE 500 MG INJ 100 ML IV SCH (05:17)
[2016-09-04] MEDS: LACTATED RINGER'S 1000 ML IV SCH (05:59)
[2016-09-04] MEDS: INSULIN ASPART SUPPLEMENTAL SCALE SQ SCH ×2 (06:35→11:15)
[2016-09-04] MEDS: CIPROFLOXACIN 400 MG PREMIX 200 ML IV SCH (06:35)
[2016-09-04 07:52] VITALS: PULSE 66
[2016-09-04 08:01] VITALS: BP 140/68; PULSE 63; RESP 18; TEMP 98.8; O2SAT 94
[2016-09-04] MEDS: SODIUM CHLORIDE 0.9% FLUSH 5 ML FLUSH FLUSH SCH (08:36)
--- NOTE | 2016-09-04 10:05 | HHI.PR ---
Subjective Remarks resting comfortably with no distress. no fever. abdominal pain is minimal. no nausea, vomiting. wants to go home today. Objective Vitals Vital Signs Date Time Temp Pulse Resp B/P Pulse Ox O2 Delivery O2 Flow Rate FiO2 09/04/16 08:01 98.8 63 18 140/68 94 09/04/16 03:58 97.6 69 17 138/72 96 09/04/16 02:54 20 09/04/16 01:20 20 09/04/16 00:00 98.4 87 18 108/78 96 09/03/16 20:00 59 09/03/16 20:00 99.0 99 18 129/69 96 09/03/16 16:00 98.6 58 20 129/69 96 09/03/16 11:41 99.0 65 20 125/66 97 I/O 09/03/16 09/03/16 09/03/16 09/04/16 09/04/16 09/04/16 07:00 15:00 23:00 07:00 15:00 23:00 Intake Total 1157 ml 1937 ml 240 ml 1739 ml 419 ml Output Total 400 ml Balance 1157 ml 1537 ml 240 ml 1739 ml 419 ml Intake Oral 480 ml 1080 ml 240 ml 240 ml IV Total 677 ml 857 ml 1499 ml 419 ml Output Urine Total 400 ml # Voids 3 2 2 # Bowel Movements 0 0 0 0 Result Diagram: 09/03/16 0930 Imaging Last Impressions Abdomen/Pelvis CT 09/02/16 0000 Signed Impressions: Service Date/Time: September 19:25 - CONCLUSION: 1. Worsening acute diverticulitis of the proximal sigmoid colon, currently moderately severe but uncomplicated. 2. Liver is fatty. 3. Small left pleural effusion and mild bibasilar atelectasis have developed. 4. No significant change mild prominence of the common bile duct, probably reservoir type effect after cholecystectomy. Volodymyr Price MD Cholangiopancreatography MRI 08/29/16 0000 Signed Impressions: Service Date/Time: Monday, August 29, 2016 14:00 - CONCLUSION: 1. Status post cholecystectomy. 2. The common bile duct measures 1.3 cm with no definite filling defects. No definite dilated biliary ducts. This is most likely reservoir effect secondary to cholecystectomy. Recommend correlation with liver laboratory values. If this does not correlate clinically, ERCP could be performed for further evaluation. Ady Her MD Chest X-Ray 08/28/16 1632 Signed Impressions: Service Date/Time: Sunday, August 28, 2016 16:53 - CONCLUSION: The lungs are clear. Jb Almeida MD Objective Remarks GENERAL: This is a well-nourished, well-developed patient, in no apparent distress. CARDIOVASCULAR: Regular rate and regular rhythm without murmurs, gallops, or rubs. RESPIRATORY: Clear to auscultation. Breath sounds equal bilaterally. No wheezes , rales, or rhonchi. GASTROINTESTINAL: Abdomen soft,no abdominal tenderness, nondistended. Normal, active bowel sounds MUSCULOSKELETAL: Extremities without clubbing, cyanosis, or edema. NEURO: Alert & Oriented x4 to person, place, time, situation. Moves all ext x4 Procedures EGD/ colonoscopy Medications and IVs Current Medications Sodium Chloride (NS 1000 ml Inj) 1,000 ml @ 1,000 mls/hr Q1H IV Last administered on 08/28/16 16:59; Start 08/28/16 at 16:32; Stop 08/28/16 at 17:31 ; Status DC Iohexol 100 ml 100 ml STK-MED ONCE IV ; Start 08/28/16 at 18:29; Stop 08/28/16 at 18:30; Status DC Metronidazole 100 ml @ 100 mls/hr ONCE ONCE IV Last administered on 19:21; Start 08/28/16 at 19:15; Stop 08/28/16 at 20:14; Status DC Ciprofloxacin/ Dextrose (Cipro 200 Mg Premix) 100 ml @ 100 mls/hr ONCE ONCE IV Last administered on 08/28/16 20:55; Start 08/28/16 at 19:15; Stop at 20:14; Status DC Morphine Sulfate (Morphine Inj) 4 mg ONCE ONCE IV PUSH Last administered on 19:20; Start 08/28/16 at 19:15; Stop 08/28/16 at 19:16; Status DC Ondansetron HCl (Zofran Inj) 4 mg ONCE ONCE IV PUSH Last administered on 19:20; Start 08/28/16 at 19:15; Stop 08/28/16 at 19:16; Status DC Dextrose (D50w (Vial) Inj) 25 ml UNSCH PRN IV PUSH HYPOGLYCEMIA-SEE COMMENTS; Start 08/28/16 at 19:45 Glucagon (Glucagon Inj) 1 mg UNSCH PRN OTHER HYPOGLYCEMIA-SEE COMMENTS; Start 08/28/16 at 19:45 Insulin Aspart 1 1 ACHS SLIDING SCALE SQ Last administered on 09/04/16 06:35; Start 08/28/16 at 21:00 Ciprofloxacin/ Dextrose 200 ml @ 200 mls/hr Q12H IV Last administered on 06:35; Start 08/29/16 at 07:00 Metronidazole 100 ml @ 100 mls/hr Q8H IV Last administered on 09/04/16 05:17; Start 08/29/16 at 05:00 Sodium Chloride (NS 1000 ml Inj) 1,000 ml @ 100 mls/hr Q10H IV Last administered on 09/04/16 00:52; Start 08/28/16 at 19:32 IV Flush (NS Flush) 2 ml UNSCH PRN FLUSH FLUSH AFTER USING IV ACCESS Last administered on 08/28/16 21:37; Start 08/28/16 at 19:45 IV Flush (NS Flush) 2 ml BID FLUSH Last administered on 09/03/16 21:47; Start 08/28/16 at 21:00 Ondansetron HCl (Zofran Inj) 4 mg Q6H PRN IVP NAUSEA OR VOMITING Last administered on 09/03/16 18:10; Start 08/28/16 at 19:45 Bisacodyl (Dulcolax Supp) 10 mg DAILY PRN HI CONSTIPATION Last administered on 09/03/16 05:46; Start 08/28/16 at 19:45 Acetaminophen (Tylenol) 650 mg Q6H PRN PO FEVER/PAIN SCALE 1 TO 2 Last administered on 08/31/16 21:52; Start 08/28/16 at 19:45 Acetaminophen/ Hydrocodone Bitart ([place] 5-325 Mg) 1 tab Q4H PRN PO PAIN SCALE 3 TO 5 Last administered on 08/30/16 16:59; Start 08/28/16 at 19:45 Morphine Sulfate (Morphine Inj) 2 mg Q3H PRN IV Pain 6-10 Last administered on 08/29/16 11:54; Start 08/28/16 at 19:45; Stop 08/29/16 at 13:30; Status DC Polyethylene Glycol/ Electrolytes (Colyte Liq) 4,000 ml ONCE ONCE PO Last administered on 08/29/16 13:18; Start 08/29/16 at 13:00; Stop 08/29/16 at 13:01 ; Status DC Hydromorphone HCl 1 mg 1 mg Q4H PRN IV PUSH BREAKTHROUGH PAIN Last administered on 09/04/16 09:22; Start 08/29/16 at 13:30 Lactated Ringer's (Lr 1000 ml Inj) 1,000 ml @ 30 mls/hr Q24H IV ; Start at 06:00 Polyethylene Glycol/ Electrolytes (Colyte Liq) 4,000 ml ONCE ONCE PO Last administered on 08/30/16 11:53; Start 08/30/16 at 10:15; Stop 08/30/16 at 10:16 ; Status DC Propofol (Diprivan 200 Mg/20 ml Inj) 450 mg STK-MED ONCE IV ; Start 08/30/16 at 10:13; Stop 08/30/16 at 10:14; Status DC Hydromorphone HCl (Dilaudid Pf Inj) 0.2 mg ONCE ONCE IV PUSH ; Start 08/30/16 at 11:30; Stop 08/30/16 at 11:31; Status DC Propofol (Diprivan 200 Mg/20 ml Inj) 700 mg STK-MED ONCE IV ; Start 08/31/16 at 16:34; Stop 08/31/16 at 17:05; Status DC Acetaminophen/ Hydrocodone Bitart ([place] 5-325 Mg) 2 tab Q4H PRN PO PAIN > 5 Last administered on 09/04/16 06:34; Start 09/01/16 at 09:45 Calcium Carbonate (Tums Chew) 500 mg Q12HR PRN CHEW DYSPEPSIA Last administered on 09/01/16 11:48; Start 09/01/16 at 11:00 Diatrizoate Meglum/ Diatrizoate Sod ( Gastroview Liq) 18 ml ONCE ONCE PO Last administered on 09/02/16 11:50; Start 09/02/16 at 10:02; Stop 09/02/16 at 10: 46; Status DC Iohexol (Omnipaque 350 Inj) 70 ml STK-MED ONCE IV Last administered on t 19:39; Start 09/02/16 at 19:39; Stop 09/02/16 at 19:40; Status DC A/P Assessment and Plan A/P - Sepsis possibly due to Diverticulitis- clinically improving although the repeat CT abdomen with worsening diverticulitis. switch to po antibiotics. . Analgesics/antiemetics. MRCP with Status post cholecystectomy. The common bile duct measures 1.3 cm with no definite filling defects. No definite dilated biliary ducts. This is most likely reservoir effect secondary to cholecystectomy. GI consulted- s/p EGD with gastritis and colonoscopy with diverticulosis. - DM: Sliding scale w/ Accu-Cheks, hold Metformin/Glipizide in light of Sepsis and decreased PO intake. -hypothyroidism; resumed home meds upon discharge. - DVT Prophylaxis: SCD/Teds. Discharge Planning dc home today with f/u by pcp and GI. see med list. d/w the patient and RN. Mallory Hamilton MD Sep 04, 2016 10:05
[2016-09-04] MEDS ORDERED: METF1000 PO (10:08)
--- NOTE | 2016-09-04 10:09 | HHI.DCPOC ---
Discharge Care Plan Diagnosis: (1) Diverticulitis Additional Problems abdominal pain. Goals to Promote Your Health * To prevent worsening of your condition and complications * To maintain your health at the optimal level Directions to Meet Your Goals Take your medications as prescribed Follow your dietary instruction Follow activity as directed Keep your appointments as scheduled Take your immunizations and boosters as scheduled If your symptoms worsen call your PCP, if no PCP go to Urgent Care Center or Emergency Room Smoking is Dangerous to Your Health. Avoid second hand smoke Call the 24-hour hour crisis hotline for domestic abuse at Mallory Hamilton MD Sep 04, 2016 10:08
--- NOTE | 2016-09-04 10:10 | HHI.DS ---
Discharge Summary Admission Date Aug 28, 2016 at 19:22 Discharge Date: Sep 04, 2016 Admitting Diagnosis diverticulitis, sepsis (1) Sepsis ICD Code: A41.9 Diagnosis: Principal (2) Diverticulitis ICD Code: K57.92 Diagnosis: Principal (3) DM (diabetes mellitus) ICD Code: E11.9 Diagnosis: Secondary Procedures EGD/ colonoscopy Brief History - From Admission This is a 56-year-old female with a PMH of DM and Hypothyroidism who presented to the ER with complaints of lower abdominal pain for approx 1wk. 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 The following day while at work, she developed symptoms of UTI and was prescribed Cipro, however not able to fill prescription until yesterday. Today, pt w/ severe abdominal pain w/ "rebound" and decided to come to ER. Denies fever, chills, nausea, vomiting or diarrhea. On arrival, BP 180/ 86, HR 126, O2 sat 97% on RA, Temp 99.1, repeat Temp 100.9. WBC 15.6. Chemistry essentially unremarkable except for BS 206. Lactic Acid 1.3. UA negative. CXR with no acute findings. CT Abd/Pelvis w/ dilation of CBD w/ possible fullness for which ERCP recommended and questionable induration along proximal sigmoid colon suggestive of diverticulitis. S/p Blood Cultures, Cipro/ Flagyl in ER. CBC/BMP: 09/03/16 0930 Significant Findings Laboratory Tests Test 09/03/16 09:30 Neutrophils (%) (Auto) 79.4 % (16.0-70.0) Lymphocytes # (Auto) 0.7 TH/MM3 (1.0-4.8) Imaging Last Impressions Abdomen/Pelvis CT 09/02/16 0000 Signed Impressions: Service Date/Time: September 19:25 - CONCLUSION: 1. Worsening acute diverticulitis of the proximal sigmoid colon, currently moderately severe but uncomplicated. 2. Liver is fatty. 3. Small left pleural effusion and mild bibasilar atelectasis have developed. 4. No significant change mild prominence of the common bile duct, probably reservoir type effect after cholecystectomy. Volodymyr Price MD Cholangiopancreatography MRI 08/29/16 0000 Signed Impressions: Service Date/Time: Monday, August 29, 2016 14:00 - CONCLUSION: 1. Status post cholecystectomy. 2. The common bile duct measures 1.3 cm with no definite filling defects. No definite dilated biliary ducts. This is most likely reservoir effect secondary to cholecystectomy. Recommend correlation with liver laboratory values. If this does not correlate clinically, ERCP could be performed for further evaluation. Ady Her MD Chest X-Ray 08/28/16 1632 Signed Impressions: Service Date/Time: Sunday, August 28, 2016 16:53 - CONCLUSION: The lungs are clear. Jb Almeida MD PE at Discharge GENERAL: This is a well-nourished, well-developed patient, in no apparent distress. CARDIOVASCULAR: Regular rate and regular rhythm without murmurs, gallops, or rubs. RESPIRATORY: Clear to auscultation. Breath sounds equal bilaterally. No wheezes , rales, or rhonchi. GASTROINTESTINAL: Abdomen soft,no abdominal tenderness, nondistended. Normal, active bowel sounds MUSCULOSKELETAL: Extremities without clubbing, cyanosis, or edema. NEURO: Alert & Oriented x4 to person, place, time, situation. Moves all ext x4 Hospital Course - Sepsis possibly due to Diverticulitis- clinically improving although the repeat CT abdomen with worsening diverticulitis. switch to po antibiotics. . Analgesics/antiemetics. MRCP with Status post cholecystectomy. The common bile duct measures 1.3 cm with no definite filling defects. No definite dilated biliary ducts. This is most likely reservoir effect secondary to cholecystectomy. GI consulted- s/p EGD with gastritis and colonoscopy with diverticulosis. - DM: Sliding scale w/ Accu-Cheks, hold Metformin/Glipizide in light of Sepsis and decreased PO intake. -hypothyroidism; resumed home meds upon discharge. - DVT Prophylaxis: SCD/Teds. Pt Condition on Discharge: Good Discharge Disposition: Discharge Home Discharge Time: <= 30 minutes Discharge Instructions DIET: Follow Instructions for: Low Fiber Diet Activities you can perform: Regular-No Restrictions Follow up Referrals: Gastroenterology PCP Follow-up New Medications: Ciprofloxacin (Cipro) 500 Mg Tab 500 MG PO BID Infection Days 5 Ref 0 TAB Metronidazole (Flagyl) 500 Mg Tab 500 MG PO TID Infection Days 5 Ref 0 TAB Hydrocodone-Acetaminophen (Hydrocodone-Acetaminophen) 5-325 mg Tab 1 TAB PO Q6HR PRN pain #15 Ref 0 TAB Changed Medications: Metformin (Metformin) 1,000 Mg Tab 1000 MG PO BIDPC Blood Sugar Management #60 Ref 0 TAB (Changed from: Removed Instructions) Continued Medications: Albiglutide 4-Pack Inj (Tanzeum 4-Pack Inj) 50 Mg Pfpen 50 MG SQ Q7D #4 PEN Empagliflozin (Jardiance) 25 Mg Tab 25 MG PO DAILY Blood Sugar Management #30 Ref 0 TAB Glipizide (Glipizide) 10 Mg Tab 8 MG PO DAILY Take 30 minutes before a meal Blood Sugar Management #30 Ref 0 TAB Levothyroxine (Synthroid) 75 Mcg Tab 75 MCG PO DAILY Thyroid #30 Ref 0 TAB Simvastatin (Simvastatin) 20 Mg Tab 20 MG PO HS Cholesterol Management #30 Ref 0 TAB Tramadol (Tramadol) 50 Mg Tab 50 MG PO Q4H PRN PAIN Ref 0 TAB Mallory Hamilton MD Sep 04, 2016 10:10
[2016-09-04] MEDS ORDERED: HYDR-3516 PO (10:20)
[2016-12-01] MEDS ORDERED: GABA300C5 PO (10:16)
[2016-12-01] MEDS ORDERED: MAGN500T4 PO (10:27)
[2016-12-01] MEDS ORDERED: CYAN1TAB24 PO (10:27)
[2016-12-01] MEDS ORDERED: NAPR220T95 PO (10:27)
[2016-12-01] MEDS ORDERED: POTA75TA PO (10:27)
[2016-12-01] MEDS ORDERED: PYRI1TAB5 PO (10:27)
[2016-12-01] MEDS ORDERED: CO Q100C9 PO (10:27)
[2016-12-01] MEDS ORDERED: GLUC500C5 PO (10:27)
[2016-12-01] MEDS ORDERED: IBUP200T2 PO (10:27)
[2016-12-01] MEDS ORDERED: GLIM4TAB PO (10:27)
[2016-12-01] MEDS ORDERED: CETI10TA71 PO (10:27)
[2016-12-01] MEDS ORDERED: ASCO500C PO (10:27)
[2016-12-01] MEDS ORDERED: PROB1CAP12 PO (10:27)
[2016-12-17] MEDS ORDERED: OXYC1TAB63 PO (09:33)
== END 2016-09-04 12:18 | disposition home or self-care (01) | DRG 872 ==
LOC: NEPC 16:16 → NEDA 19:22 → N07A 20:59
PROVIDERS: ADMIT Internal Medicine; ATTEND Internal Medicine
PROC: 0DB68ZX Excision of Stomach, Via Natural or Artificial Opening Endoscopic, Diagnostic (ICD-10-PCS; principal; 2016-08-30 09:00)
PROC: 0DJD8ZZ Inspection of Lower Intestinal Tract, Via Natural or Artificial Opening Endoscopic (ICD-10-PCS; 2016-08-30 09:00)
PROC: 0DJD8ZZ Inspection of Lower Intestinal Tract, Via Natural or Artificial Opening Endoscopic (ICD-10-PCS; 2016-08-31)
DX: A41.9 Sepsis, unspecified organism (principal); J90 Pleural effusion, not elsewhere classified; K57.32 Diverticulitis of large intestine without perforation or abscess without bleeding; N39.0 Urinary tract infection, site not specified; J98.11 Atelectasis; E11.9 Type 2 diabetes mellitus without complications; E03.9 Hypothyroidism, unspecified; K52.9 Noninfective gastroenteritis and colitis, unspecified; K29.70 Gastritis, unspecified, without bleeding; Z86.010 Personal history of colon polyps; G47.30 Sleep apnea, unspecified; M54.30 Sciatica, unspecified side; F41.9 Anxiety disorder, unspecified
CPT/HCPCS: 71010; 74177; 74181; 76377; 76937; 80053; 81001; 82550; 82552; 82948; 83605; 83690; 83735; 84484; 85025; 85027; 85610; 85730; 88305; 88312; 93005; 96361; 96374; 96375; J0744; J1170; J1815; J2270; J2405; J7030; Q9963; Q9967

== ENCOUNTER → 2016-11-17 | Outpatient (CLI) | payer OTHER ==
[~2016-11-17] MED LIST changes: +ALBI1INJ2 SQ; +ASCO500C PO; -CENTTAB9; +CETI10TA71 PO; +CIPR-9 PO; +CO Q100C9 PO; +CYAN1TAB24 PO; +EMPA1TAB3 PO; +GABA300C5 PO; +GLIM4TAB PO; +GLIP10TA6 PO; +GLUC500C5 PO; -GLYB5TAB3 PO; +HYDR-3516 PO; +IBUP200T2 PO; -IBUP400T20 PO; +LEVO.075 PO; +MAGN500T4 PO; -METF-324 PO; +METF1000 PO; +METR-1 PO; +NAPR220T95 PO; -ORPH100T PO; +OXYC1TAB63 PO; +POTA75TA PO; +PROB1CAP12 PO; +PYRI1TAB5 PO; +SIMV20TA PO; -SYNT25TA PO; +TRAM50TA PO; -VALT1TAB26 PO
[2016-11-17 08:17] LABS: AUTOMATED NEUTROPHIL # 5.1 TH/MM3 (1.8-7.7); BASOPHIL % 0.4 % (0.0-2.0); EOSINOPHIL # 0.1 TH/MM3 (0-0.4); EOSINOPHIL % 1.3 % (0.0-4.0); HEMATOCRIT 38.8 % (35.0-46.0); HEMO FLAGS DIFF FINAL; LYMPH % 21.4 % (9.0-44.0); LYMPHOCYTE # 1.5 TH/MM3 (1.0-4.8); MEAN CELL VOLUME 88.9 FL (80.0-100.0); MEAN CORPUSCULAR HEMOGLOBIN 29.3 PG (27.0-34.0); MONO % 5.5 % (0.0-8.0); NEUT % 71.4 % (16.0-70.0); PLATELET COUNT 218 TH/MM3 (150-450); RED BLOOD COUNT 4.36 MIL/MM3 (4.00-5.30); RED CELL DISTRIBUTION WIDTH 13.9 % (11.6-17.2); WHITE BLOOD COUNT 7.2 TH/MM3 (4.0-11.0)
[2016-11-17 08:49] LABS: ALKALINE PHOSPHATASE 49 U/L (45-117); ALT (GPT) 18 U/L (10-53); ANION GAP 9 MEQ/L (5-15); AST (GOT) 10 U/L (15-37); BICARBONATE 25.1 MEQ/L (21.0-32.0); BLOOD UREA NITROGEN 15 MG/DL (7-18); CHLORIDE 103 MEQ/L (98-107); GLOMERULAR FILTRATION RATE 78 ML/MIN (>89); GLUCOSE,FASTING 149 MG/DL (74-99); HDL CHOLESTEROL 51.2 MG/DL (40.0-60.0); LDL CHOLESTEROL 71 MG/DL (0-99); POTASSIUM 4.3 MEQ/L (3.5-5.1); SODIUM (NA) 137 MEQ/L (136-145); TOTAL BILIRUBIN ADULT 0.5 MG/DL (0.2-1.0)
[2016-11-17 16:42] LABS: HEMOGLOBIN A1a 1.2 %; HEMOGLOBIN A1b 0.8 %; HEMOGLOBIN Ao 83.5 %; HEMOGLOBIN F 1.3 %; HEMOGLOBIN LA1C 2.2 %; HEMOGLOBIN P3 3.9 %
== END ==
LOC: CLAB 07:58
PROVIDERS: ATTEND Internal Medicine Hematology
DX: E11.65 Type 2 diabetes mellitus with hyperglycemia (principal); L73.2 Hidradenitis suppurativa; E03.9 Hypothyroidism, unspecified; E78.2 Mixed hyperlipidemia
CPT/HCPCS: 36415; 80053; 80061; 83036; 85025

== ENCOUNTER → 2016-12-01 | Day surgery (SDC) | payer OTHER ==
[~2016-12-01] MED LIST changes: +LIDOCAINE HCL 1% PF 30 ML VIAL EPIDURAL ONE; +MEPERIDINE HCL 25 MG/ML VIAL IV ONE; +PROPOFOL 200 MG/20 ML AMP IV ONE; +TRIAMCINOLONE ACETONIDE 40 MG/ML VIAL NERV BLOCK ONE
--- NOTE | 2016-12-01 11:00 | M6 ---
cc: DEEPTI DIAZ M.D. DATE 12/01/2016 DATE OF 1960 PROCEDURE Fluoroscopically guided right S1 transforaminal epidural steroid injection. PROCEDURE NOTE History and physical was completed and signed. Consent was signed. Procedure site was marked. Medications were listed and reconciled. Pain score was recorded. Allergies were noted. Time out was taken. Fluoroscopy time was recorded where applicable. Sedation was administered or directed by Dr. Diaz. The patient was given oxygen. The patient was monitored by a registered nurse. Total procedure time was greater than 15 minutes. IV was started, blood pressure cuff, pulse oximeter and EKG were applied. The patient was placed in the prone position on a Avery table, sedated with small amounts of propofol titrated to effect. She was also given some Demerol. Vital signs were monitored and remained stable throughout the procedure. The lumbar area was prepped with alcohol and 10% Betadine solution and draped with sterile drapes. Fluoroscopy was used to visualize the S1 neural foramen on the right side. A 3-1/2-inch 22-gauge Chiba needle was advanced into the foramen. Omnipaque dye was injected and seen to outline the nerve root spreading proximally and distally. At this point, the patient was given 3 mL of 1% Xylocaine and 60 mg of Kenalog directly on the nerve root. Following this, the patient was taken to the recovery room with stable vital signs neurologically intact. We will follow up with her to determine if she has had a significant reduction in her pain. WMD LORA Rondon/SIS /10:48 AM /10:55 AM
== END | disposition home or self-care (01) ==
LOC: PHSDC 09:03
PROVIDERS: ATTEND Pain Medicine Interventional Pain Medicine
DX: M54.5 Low back pain (principal); M79.661 Pain in right lower leg
CPT/HCPCS: 64483; 99152; J2175; J3301

== ENCOUNTER → 2016-12-17 | Day surgery (SDC) | payer OTHER ==
[~2016-12-17] MED LIST changes: -ALBI1INJ2 SQ; -CIPR-9 PO; -GLIP10TA6 PO; +IOHEXOL 180 MG/ML 20 ML VIAL (for RAD DIAG) EPIDURAL ONE; -METR-1 PO
--- NOTE | 2016-12-20 09:22 | M6 ---
cc: DEEPTI DIAZ M.D., KATHLEEN B. M.D. DATE: 12/17/2016 DATE OF : 1960 PREPROCEDURE NOTE On 12/01/2016 we performed a fluoroscopically guided right S1 transforaminal nerve root injection of local anesthetic and steroid on Ms. Sheehan who has right S1 radiculopathy. She comes today to report that she is greatly improved. We are simply repeating the procedure and following this procedure we will see the patient on an as-needed basis. Hopefully she will obtain some sustained relief. PROCEDURE Fluoroscopically guided right S1 transforaminal nerve root injection of local anesthetic and steroid. PROCEDURE NOTE History and physical was completed and signed. Consent was signed. Procedure site was marked. Medications were listed and reconciled. Pain score was recorded. Allergies were noted. Timeout was taken. Fluoroscopy time was recorded where applicable. Sedation was administered or directed by Dr. Diaz. The patient was given oxygen. The patient was monitored by a registered nurse. Total procedure time was greater than 15 minutes. An IV was started, blood pressure cuff, pulse oximeter and EKG were applied. The patient was placed in the prone position on a Avery table, sedated with small amounts of propofol titrated to effect. Vital signs were monitored and remained stable throughout the procedure. The sacral area was prepped with alcohol and 10% Betadine solution, draped with sterile drapes. Fluoroscopy was used in a slightly oblique angle to clearly visualize the right S1 neural foramen. A 3-1/2 inch, 22-gauge Chiba needle was advanced into the foramen under fluoroscopic guidance. There was negative aspiration for blood or any other type of fluid. There was no washout to injection of Omnipaque dye and the patient was given 3 mL of 0.5% Xylocaine, 40 mg of Kenalog. Following the procedure the patient was taken to the recovery room with stable vital signs, neurologically intact. W. Flo Diaz MD [facility]/MINERVA /10:19 AM /9:16 AM
== END | disposition home or self-care (01) ==
LOC: PHSDC 09:07
PROVIDERS: ATTEND Pain Medicine Interventional Pain Medicine
DX: M54.17 Radiculopathy, lumbosacral region (principal)
CPT/HCPCS: 64483; 99152; J2175; J3301; Q9965

== ENCOUNTER → 2017-03-02 | Outpatient (CLI) | payer OTHER ==
[~2017-03-02] MED LIST changes: -IOHEXOL 180 MG/ML 20 ML VIAL (for RAD DIAG) EPIDURAL ONE; -LIDOCAINE HCL 1% PF 30 ML VIAL EPIDURAL ONE; -MEPERIDINE HCL 25 MG/ML VIAL IV ONE; -PROPOFOL 200 MG/20 ML AMP IV ONE; -TRIAMCINOLONE ACETONIDE 40 MG/ML VIAL NERV BLOCK ONE
[2017-03-02 08:49] LABS: ANION GAP 9 MEQ/L (5-15); AST (GOT) 11 U/L (15-37); BICARBONATE 24.5 MEQ/L (21.0-32.0); BLOOD UREA NITROGEN 18 MG/DL (7-18); CHLORIDE 107 MEQ/L (98-107); GLOMERULAR FILTRATION RATE 97 ML/MIN (>89); GLUCOSE,FASTING 134 MG/DL (74-99); POTASSIUM 4.4 MEQ/L (3.5-5.1); SODIUM (NA) 140 MEQ/L (136-145)
[2017-03-02 08:50] LABS: ALT (GPT) 19 U/L (10-53)
[2017-03-02 09:00] LABS: ALKALINE PHOSPHATASE 51 U/L (45-117); FREE T3 2.16 PG/ML (2.18-3.98); FREE T4 1.36 NG/DL (0.76-1.46); TOTAL BILIRUBIN ADULT 0.5 MG/DL (0.2-1.0)
[2017-03-02 11:31] LABS: HEMOGLOBIN A1a 1.2 %; HEMOGLOBIN Ao 82.7 %; HEMOGLOBIN F 1.2 %; HEMOGLOBIN LA1C 2.3 %; HEMOGLOBIN P3 4.1 %
== END ==
LOC: CLAB 07:39
PROVIDERS: ATTEND Internal Medicine Endocrinology, Diabetes & Metabolism
DX: E11.65 Type 2 diabetes mellitus with hyperglycemia (principal); E03.9 Hypothyroidism, unspecified; E78.2 Mixed hyperlipidemia
CPT/HCPCS: 36415; 80053; 83036; 84439; 84443; 84481

== ENCOUNTER → 2017-06-30 | Outpatient (CLI) | payer OTHER ==
[~2017-06-30] MED LIST changes: -IBUP200T2 PO; +IBUP200T47 PO; -PYRI1TAB5 PO; +VITA100T10 PO
[2017-06-30 10:14] LABS: ALT (GPT) 23 U/L (10-53); ANION GAP 9 MEQ/L (5-15); AST (GOT) 14 U/L (15-37); BICARBONATE 25.6 MEQ/L (21.0-32.0); BLOOD UREA NITROGEN 16 MG/DL (7-18); CHLORIDE 104 MEQ/L (98-107); GLOMERULAR FILTRATION RATE 92 ML/MIN (>89); GLUCOSE,FASTING 163 MG/DL (74-99); POTASSIUM 4.1 MEQ/L (3.5-5.1); SODIUM (NA) 139 MEQ/L (136-145)
[2017-06-30 10:17] LABS: ALKALINE PHOSPHATASE 50 U/L (45-117); TOTAL BILIRUBIN ADULT 0.4 MG/DL (0.2-1.0)
[2017-06-30 10:24] LABS: FREE T3 2.56 PG/ML (2.18-3.98); FREE T4 1.47 NG/DL (0.76-1.46)
[2017-06-30 16:46] LABS: HEMOGLOBIN A1a 1.6 %; HEMOGLOBIN Ao 81.5 %; HEMOGLOBIN F 1.4 %; HEMOGLOBIN LA1C 2.6 %; HEMOGLOBIN P3 4.1 %
== END ==
LOC: CLAB 08:41
PROVIDERS: ATTEND Internal Medicine Endocrinology, Diabetes & Metabolism
DX: E03.9 Hypothyroidism, unspecified (principal); E78.2 Mixed hyperlipidemia; E11.65 Type 2 diabetes mellitus with hyperglycemia
CPT/HCPCS: 36415; 80053; 83036; 84439; 84443; 84481

== ENCOUNTER → 2017-09-27 | Outpatient (CLI) | payer OTHER ==
[2017-09-27 08:38] LABS: BICARBONATE 27.1 MEQ/L (21.0-32.0); BLOOD UREA NITROGEN 16 MG/DL (7-18); CALCIUM 9.1 MG/DL (8.5-10.1); CHLORIDE 104 MEQ/L (98-107); CHOLESTEROL 155 MG/DL (120-200); CREATININE 0.71 MG/DL (0.50-1.00); GLOMERULAR FILTRATION RATE 85 ML/MIN (>89); GLUCOSE,FASTING 152 MG/DL (74-99); SODIUM (NA) 138 MEQ/L (136-145); TRIGLYCERIDES 93 MG/DL (42-150)
[2017-09-27 08:47] LABS: ALKALINE PHOSPHATASE 59 U/L (45-117); ALT (GPT) 15 U/L (10-53); CHOLESTEROL/ HDL RATIO 3.09 RATIO; FREE T3 2.24 PG/ML (2.18-3.98); FREE T4 1.47 NG/DL (0.76-1.46); HDL CHOLESTEROL 50.1 MG/DL (40.0-60.0); LDL CHOLESTEROL 86 MG/DL (0-99); TOTAL BILIRUBIN ADULT 0.5 MG/DL (0.2-1.0); TOTAL PROTEIN 7.7 GM/DL (6.4-8.2)
[2017-09-27 08:59] LABS: AST (GOT) 13 U/L (15-37)
[2017-09-27 15:38] LABS: HEMOGLOBIN A1C 7.3 % (4.3-6.0)
== END ==
LOC: CLAB 07:33
PROVIDERS: ATTEND Internal Medicine Endocrinology, Diabetes & Metabolism
DX: E11.65 Type 2 diabetes mellitus with hyperglycemia (principal); E03.9 Hypothyroidism, unspecified; E78.2 Mixed hyperlipidemia
CPT/HCPCS: 36415; 80053; 80061; 82043; 83036; 84439; 84443; 84481

== ENCOUNTER → 2017-12-15 | Day surgery (SDC) | payer OTHER ==
[~2017-12-15] MED LIST changes: +LIDOCAINE HCL 1% 30 ML VIAL INFIL ONE; +MEPERIDINE HCL 25 MG/ML VIAL IV ONE; +PROPOFOL 200 MG/20 ML AMP IV ONE; +SODIUM CHLORIDE 0.9% 10 ML VIAL ONE; +TRIAMCINOLONE ACETONIDE 40 MG/ML VIAL NERV BLOCK ONE; +methylPREDNISolone ACETATE 80 MG/ML VIAL ONE
--- NOTE | 2017-12-15 10:52 | M6 ---
cc: Nanette Diaz MD DATE: 12/15/2017 PROCEDURE PERFORMED: Fluoroscopically guided L5-S1 interlaminar epidural steroid injection. History and physical was completed and signed. Consent was signed. Procedure site was marked. Medications were listed and reconciled. Pain score was recorded. Allergies were noted. Time out was taken. Fluoroscopy time was recorded where applicable. Sedation was administered or directed by Dr. Diaz. The patient was given oxygen. The patient was monitored by a registered nurse. Total procedure time was greater than 15 minutes. DESCRIPTION OF THE PROCEDURE: IV was started, blood pressure cuff, pulse oximeter and EKG were applied. The patient was placed in the prone position on a Avery table, sedated with small amounts of propofol titrated to effect. Vital signs were monitored and remained stable throughout the procedure. The lumbar area was prepped with alcohol and 10% Betadine solution and draped with sterile drapes. Fluoroscopy was used to visualize the L5-S1 interlaminar space. The skin was infiltrated with 1% Xylocaine using a 27-gauge needle. Then, a 3-1/2 inch 18 gauge Alexis needle was advanced using fluoroscopic guidance and the loss of resistance technique into the epidural space at L5-S1 slightly to the left of the midline. There was negative aspiration for blood and any other type of fluid and at that location, the patient was given 10 mL of 0.5% Xylocaine and 80 mg of Depo-Medrol. Following the procedure, the patient was taken to the recovery room with stable vital signs neurologically intact. She will be evaluated immediately and with followup to determine if she has a subjective decrease in her usual pain and a corresponding increase in her functional capabilities. Nanette Diaz MD [facility]/DL , 10:36 AM , 10:51 AM
== END | disposition home or self-care (01) ==
LOC: PHSDC 08:14
PROVIDERS: ATTEND Pain Medicine Interventional Pain Medicine
DX: M54.5 Low back pain (principal); M79.605 Pain in left leg; M79.604 Pain in right leg
CPT/HCPCS: 62323; 99152; J1040; J2175; J3301

== ENCOUNTER → 2017-12-28 | Outpatient (CLI) | payer OTHER ==
[~2017-12-28] MED LIST changes: -LIDOCAINE HCL 1% 30 ML VIAL INFIL ONE; -MEPERIDINE HCL 25 MG/ML VIAL IV ONE; -PROPOFOL 200 MG/20 ML AMP IV ONE; -SODIUM CHLORIDE 0.9% 10 ML VIAL ONE; -TRIAMCINOLONE ACETONIDE 40 MG/ML VIAL NERV BLOCK ONE; -methylPREDNISolone ACETATE 80 MG/ML VIAL ONE
[2017-12-28 09:00] LABS: ALT (GPT) 22 U/L (10-53)
[2017-12-28 09:10] LABS: ALKALINE PHOSPHATASE 60 U/L (45-117); FREE T3 2.42 PG/ML (2.18-3.98); FREE T4 1.34 NG/DL (0.76-1.46); TOTAL BILIRUBIN ADULT 0.3 MG/DL (0.2-1.0); TOTAL PROTEIN 7.4 GM/DL (6.4-8.2)
[2017-12-28 09:11] LABS: ALBUMIN 3.5 GM/DL (3.4-5.0); AST (GOT) 24 U/L (15-37); BICARBONATE 24.4 MEQ/L (21.0-32.0); BLOOD UREA NITROGEN 16 MG/DL (7-18); CALCIUM 8.9 MG/DL (8.5-10.1); CHLORIDE 106 MEQ/L (98-107); CREATININE 0.84 MG/DL (0.50-1.00); GLOMERULAR FILTRATION RATE 70 ML/MIN (>89); GLUCOSE,FASTING 249 MG/DL (74-99); SODIUM (NA) 140 MEQ/L (136-145)
[2017-12-28 16:58] LABS: HEMOGLOBIN A1C 7.3 % (4.3-6.0)
== END ==
LOC: CLAB 08:06
PROVIDERS: ATTEND Internal Medicine Endocrinology, Diabetes & Metabolism
DX: E11.65 Type 2 diabetes mellitus with hyperglycemia (principal); E78.2 Mixed hyperlipidemia; E03.9 Hypothyroidism, unspecified
CPT/HCPCS: 36415; 80053; 83036; 84439; 84443; 84481

== ENCOUNTER → 2018-01-19 | Day surgery (SDC) | payer OTHER ==
[~2018-01-19] MED LIST changes: +ASPI81TA23 PO; +BOSW5TAB PO; +BUPIVACAINE HCL PF 0.5% 30 ML VIAL ONE; +DOCU1CAP66 PO; +FLAX10002 PO; +GARC500T PO; +LIDOCAINE HCL 1% 30 ML VIAL INFIL ONE; +MELO15TA20 PO; +ONE-TAB PO; +POTA-255 PO; +TRIAMCINOLONE ACETONIDE 40 MG/ML VIAL NERV BLOCK ONE; +VICT18IN SQ; +methylPREDNISolone ACETATE 40 MG/ML VIAL I-ARTICULR ONE
--- NOTE | 2018-01-19 09:50 | M6 ---
cc: Nanette Diaz MD DATE: 01/19/2018 PROCEDURE PERFORMED: Fluoroscopically-guided injection, bilateral sacroiliac joints. History and physical was completed and signed. Consent was signed. Procedure site was marked. Medications were listed and reconciled. Pain score was recorded. Allergies were noted. Time out was taken. Fluoroscopy time was recorded where applicable. PROCEDURE NOTE: Blood pressure cuff, pulse oximeter and EKG were applied. The patient was placed in the prone position on a Avery table. No sedation was used. Her back was prepped with alcohol and 10% Betadine solution, draped with sterile drapes. Fluoroscopy was used shooting from medial to lateral to clearly visualize the posterior joint lines of the bilateral sacroiliac joints. Separate sterile 5 inch, 22-gauge spinal needles were advanced into the joints under fluoroscopic guidance. There was negative aspiration for blood or any other type of fluid and at each location, the patient was given 1.5 mL of 0.5% Marcaine, 20 mg of Depo-Medrol, 20 mg of Kenalog. Following the procedure, the patient was taken to the recovery room with stable vital signs, neurologically intact. She will be evaluated immediately and with followup to determine if she has a subjective decrease in her usual pain and a corresponding objective increase in her functional capability. Nanette Diaz MD [facility]/DL , 09:39 AM , 09:47 AM
== END | disposition home or self-care (01) ==
LOC: PHSDC 07:38
PROVIDERS: ATTEND Pain Medicine Interventional Pain Medicine
DX: M54.5 Low back pain (principal)
CPT/HCPCS: 27096; J1030; J3301; G0260

== ENCOUNTER 2018-07-05 08:13 | Inpatient (IN) ==
[2018-07-05] MEDS ORDERED: Chlorhexidine Gluconate 2% 1 Pack (2 Cloths) TOPICAL SCH (08:47)
[2018-07-05] MEDS ORDERED: Metoprolol Tartrate 25 MG Tablet PO SCH (08:47)
[2018-07-05] MEDS ORDERED: Sodium Chlor 0.9% Inj 500 ML IV.SIG SCH (09:00)
[2018-07-05] MEDS ORDERED: Chlorhexidine 4% Topical 120 APPLIC/120 ML Bottle TOPICAL SCH (09:00)
[2018-07-05] MEDS ORDERED: Vancomycin Inj 1,000 MG in Sodium Chlor 0.9% Inj 250 ML IV.SIG SCH (09:00)
[2018-07-05] MEDS ORDERED: ceFAZolin 2 GM Premix Inj 2 GM/50 ML PIGGYBACK IV.SIG SCH (09:00)
[2018-07-05] MEDS ORDERED: Dexamethasone Inj 20 MG/5 ML Vial IV.PUSH ONE (09:15)
[2018-07-05] MEDS ORDERED: Sodium Chlor 0.9% Inj 40 ML, Bupivacaine Liposo PF 1.3% Inj 20 ML P-ARTICULR SCH ×2 (10:00)
[2018-07-05] MEDS ORDERED: SODIUM CHLOR 0.9% IV.SIG SCH ×2 (10:00→14:30)
[2018-07-05] MEDS ORDERED: TRANEXAMIC ACID IV.SIG SCH ×2 (10:00→14:30)
--- NOTE | 2018-07-05 13:29 | XR ---
EXAM DATE: 07/05/2018 1:27 PM EST AGE/SEX: 58 years / Female INDICATIONS: Right total hip arthroplasty. CLINICAL DATA: This is the patient's initial encounter. Patient reports that signs and symptoms have been present for 1 day and indicates a pain score of Nonresponsive. MEDICAL/SURGICAL HISTORY: Non-responsive. Non-responsive. COMPARISON: No prior exams available for comparison. FINDINGS: 3 spot images obtained in the operating room during a procedure documents right total hip arthroplast y hardware. The components are noncemented. No unexpected finding is identified. CONCLUSION: Images document right total hip arthroplasty hardware, as above. Electronically signed by: Volodymyr Marcos MD 07/05/2018 1:28 PM EST
[2018-07-05] MEDS ORDERED: Post-op Orders (for Pharmacy) OTHER STA (13:36)
[2018-07-05] MEDS ORDERED: Aluminum/Magnesium/Simethacone Susp 30 ML UDC PO PRN (13:36)
[2018-07-05] MEDS ORDERED: Morphine Inj 4 MG/ML Vial IV.PUSH PRN (13:36)
[2018-07-05] MEDS ORDERED: Bisacodyl 10 MG Supp RECTAL PRN (13:36)
--- NOTE | 2018-07-05 13:38 | P.OP ---
- Preoperative Diagnosis (1) Osteoarthritis of right hip - Postoperative Diagnosis (1) Osteoarthritis of right hip Date of procedure: 07/05/18 Procedure: Right total hip arthroplasty Anesthesia: GETA Surgeon: Antonino Campos MD Leadership Intern: DELMAR Drake The surgical procedure was assisted by my Advanced Registered Nurse Practitioner. My HELPER [employer]EL [employer] presence was necessary throughout this case for the manipulation and positioning of the surgical extremity. My HELPER [employer]EL FABRICATION was assisting me throughout the duration of this procedure. The skill set of an Advance Registered Nurse Practitioner was medically necessary to complete this procedure. During the surgical case, the data entry technician was working at the back table and the Advance Registered Nurse Practitioner was directly assisting me. Operation and Findings: IMPLANT DESCRIPTION ([employer]): 1. Brent Gription Cup, acetabular size 50. 2. Brent AltrX polyethylene, neutral. 4. Corail femoral stem size 12, no collar, standard offset. 5. Femoral head/neck ceramic, 32, +5. ESTIMATED BLOOD LOSS: 350 cc. JUSTIFICATION FOR PROCEDURE: The patient has end-stage osteoarthritis to the hip. There is an attached conservative measures pathway form in the chart that describes the nonoperative measures that were undertaken prior to consideration of surgical management. The patient understood the risks and benefits of surgical management. See my office notes for further details. PROCEDURE: The patient was brought back to the operative theatre. Adequate anesthesia was obtained. The patient received intravenous vancomycin and Ancef. The patient was carefully placed on the operative table. The lower extremity was prepped and draped in the usual sterile fashion. Fluoroscopic images were obtained. We made a standard anterior incision over the hip. We dissected through the TFL fascia, exposing the anterior capsule. Arthrotomy was performed in a T-shaped fashion. The capsule was tagged with a #2 FiberWire. End-stage arthritis was identified. Osteotomy was performed through the femoral neck exposing the acetabulum. Remnants of the labrum were resected and osteophytes were removed. We sequentially reamed the acetabulum. We trialed the hip and placed the final cup into position. This was done under fluoroscopic guidance to obtain the appropriate inclination and anteversion. A manhole cover was placed into the acetabular component. We then placed the final polyethylene into position and confirmed that it was well seated. Capsular attachments on the calcar and the inner aspect of the greater trochanter were resected. On the proximal aspect of the femur we used a rongeur , box osteotome, canal finder, sequential broaches and lateralizing rasp. We calcar planed the proximal femur. Then thoroughly irrigated the wound. We trialed the hip with the appropriate size stem. We placed the final stem in to position and trialed again. The hip was stable while it was externally rotated 70 degrees when the leg was lowered to the floor. The final head was applied, and final fluoroscopic images were obtained. The wound was thoroughly irrigated again. Interarticular injection of liposomal bupivacaine was given. The capsule was closed with #2 FiberWire and #1 Vicryl. The deep fascia was closed with a #2 Stratafix, followed by 2-0 Vicryl in the skin and Dermabond dressing. Postop plan is to weight-bear as tolerated. DVT prophylaxis will be performed with SCDs, PEDRO hose, early mobilization, and aspirin.
[2018-07-05] MEDS ORDERED: fentaNYL Citrate Inj 100 MCG/2 ML Ampul ONE (14:08)
[2018-07-05] MEDS ORDERED: *morphine SULFATE 4 MG/ML PERIprocedure ONLY ONE (14:10)
[2018-07-05] MEDS ORDERED: *HYDROmorphone PF Inj 1 MG/ML Ampul PERIprocedural Use ONLY ONE ×3 (14:20→15:07)
[2018-07-05] MEDS: Sod Chloride 0.9% Inj 1,000 ML IV.CONT SCH (14:49)
--- NOTE | 2018-07-05 14:51 | XR ---
EXAM DATE: 07/05/2018 2:46 PM EST AGE/SEX: 58 years / Female INDICATIONS: Post op right hip surgery. CLINICAL DATA: This is the patient's initial encounter. Patient reports that signs and symptoms have been present for 1 day and indicates a pain score of 8/10. MEDICAL/SURGICAL HISTORY: None. None. COMPARISON: [facility] [place], HIP RIGHT 2V, 07/05/2018. . FINDINGS: AP view of the pelvis with 3 views of the right hip joint demonstrate right total hip arthroplasty moran rdware in place. Hardware is noncemented. There is air in the soft tissues around the right hip. No u nexpected finding is identified. There is severe left hip joint osteoarthritis with joint space narro wing, osteophytes, subchondral sclerosis, and subchondral cystic change. CONCLUSION: Expected changes following recent right total hip arthroplasty, as above. There is severe left hip aury int osteoarthritis. Electronically signed by: Volodymyr Marcos MD 07/05/2018 2:49 PM EST
--- NOTE | 2018-07-05 15:41 | P.DCO ---
- Physical Therapy Physical Therapy: Gait training, Transfer training, bed to chair Hip: Total hip Right Lower Extremity Weight Bearing: Weight bearing as tolerated Right Lower Extremity Range of Motion: Active ROM - Nursing Dressing changes: Do not change dressing Additional instructions: First dressing change in the office - Certification Need for Home Health services: I have seen patient Marilia Sheehan on 07/05/18. My clinical findings support the need for the requested home health care services because: Need for Home Health Services: Limited ability to care for self, High risk of falls Homebound Certification: I certify that my clinical findings support that this patient is homebound because: Homebound Certification: Post-op weakness, Unsteady gait/balance
[2018-07-05] MEDS: oxyCODONE/Acetaminophen 10/325 Tablet PO PRN ×2 (17:01→21:23)
[2018-07-05] MEDS: ceFAZolin 1 GM Premix Inj 1 GM/50 ML PIGGYBACK IV.SIG SCH ×2 (17:02→23:00)
[2018-07-05] MEDS ORDERED: Zolpidem Tartrate 5 MG Tablet PO PRN (21:00)
[2018-07-05] MEDS: Multivitamin/Minerals Therapeutic Tablet PO SCH (21:24)
[2018-07-05] MEDS: Glimepiride 4 MG Tablet PO SCH (21:24)
[2018-07-05] MEDS: Senna/Docusate Sodium 8.6/50 MG Tablet PO SCH (21:24)
[2018-07-06] MEDS: Sod Chloride 0.9% Inj 1,000 ML IV.CONT SCH (05:02)
[2018-07-06] MEDS: ceFAZolin 1 GM Premix Inj 1 GM/50 ML PIGGYBACK IV.SIG SCH (05:17)
[2018-07-06] MEDS: Levothyroxine 75 MCG Tablet PO SCH (05:17)
[2018-07-06] MEDS: oxyCODONE/Acetaminophen 10/325 Tablet PO PRN ×5 (05:18→20:58)
[2018-07-06 06:36] LABS: Hematocrit 32.2 % (35.0-46.0); Hemoglobin 11.1 gm/dL (11.6-15.3)
--- NOTE | 2018-07-06 07:21 | P.PNOP ---
Subjective Interval history: Patient resting comfortably in bed with mild pain to the right hip. The patient reports some difficulty and weakness with transitioning from being supine to standing. 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 Physical Exam Vital signs: Vital Signs 07/05/18 09:41 07/05/18 13:58 07/05/18 14:00 Temperature 99.0 F 98.9 F Pulse Rate 83 97 H 96 H Respiratory Rate 20 14 14 Blood Pressure 114/62 114/55 L 116/58 L Pulse Oximetry 100 96 95 07/05/18 14:15 07/05/18 14:30 07/05/18 14:45 Temperature Pulse Rate 98 H 98 H 100 H Respiratory Rate 14 20 20 Blood Pressure 113/57 L 135/62 137/61 Pulse Oximetry 95 92 L 96 07/05/18 15:00 07/05/18 15:30 07/05/18 16:00 Temperature 97.8 F Pulse Rate 102 H 98 H 104 H Respiratory Rate 20 15 18 Blood Pressure 136/60 128/60 127/60 Pulse Oximetry 95 96 96 07/05/18 20:00 07/06/18 00:00 07/06/18 04:00 Temperature 98.5 F 97.6 F 99.6 F Pulse Rate 103 H 105 H 101 H Respiratory Rate 20 20 20 Blood Pressure 110/52 L 105/57 L 125/58 L Pulse Oximetry 98 94 L 93 L Intake & Output 07/05/18 07/06/18 07/06/18 18:59 06:59 18:59 Intake Total 2695.82 / 2695.82 1780 / 1780 Output Total 350 / 350 Balance 2345.82 / 2345.82 1780 / 1780 Weight 104.1 kg 105.4 kg Intake: IV 570.82 / 570.82 1100 / 1100 NS Inj 1,000 ML @ 80 mls/hr IV. 1000 / 1000 CONT .[id number] MIQUEL Rx#:[id number] Cyklokapron Inj 1,041 MG In NS 220.82 / 220.82 Inj 100 ML @ 200 mls/hr IV.SIG ONCE MIQUEL Rx#:[id number] Vancomycin Inj 1,000 MG In NS 250 / 250 Inj 250 ML @ 250 mls/hr IV.SIG HANDLE BENDER MIQUEL Rx#:[id number] Ancef 1 GM Premix Inj 1 gm In 50 / 50 100 / 100 50 ml @ 100 mls/hr IV.SIG Q6H MIQUEL Rx#:[id number] Ancef 2 GM Premix Inj 2 gm In 50 / 50 50 ml @ 100 mls/hr IV.SIG HANDLE BENDER MIQUEL Rx#:[id number] Oral 875 / 875 680 / 680 Anesthesia Amount 1250 / 1250 Output: Urine 0 / 0 Estimated Blood Loss 350 / 350 Other: # Voids 2 5 Date of Last Bowel Movement 07/04/18 07/04/18 Weight On Admission 104.1 kg Narrative: The patient's dressing is clean, dry, and intact. EHL/TA/G are intact. 2+ pedal pulse. The patient's calf is soft and nontender. Sensation is intact to light touch distally. Results - Labs CBC & Chem 7: 07/06/18 05:10 Laboratory Results - last 24 hr 07/05/18 07/05/18 07/05/18 09:59 17:28 21:28 Hgb Hct POC Glucose 217 H 294 H Blood Type A Positive Blood Type Recheck Required Antibody Screen Negative 07/06/18 05:10 Hgb 11.1 L Hct 32.2 L POC Glucose Blood Type Blood Type Recheck Antibody Screen - Imaging Impressions Hip X-Ray 07/05/18 00:00 CONCLUSION: Images document right total hip arthroplasty hardware, as above. Hip X-Ray 07/05/18 13:35 CONCLUSION: Expected changes following recent right total hip arthroplasty, as above. There is severe left hip joint osteoarthritis. - Procedures Right total hip arthroplasty Assessment and Plan - Problem List (1) Status post total hip replacement, right Code(s): Z96.641 - Presence of right artificial hip joint Status: Acute (2) Osteoarthritis of right hip Code(s): M16.11 - Unilateral primary osteoarthritis, right hip Status: Acute - Assessment and Plan POD #1: [Right] total hip arthroplasty 1. Weightbearing as tolerated on [right] lower extremity. 2. Aspirin 81 mg twice daily for DVT prophylaxis. 3. Ice as needed for swelling. 4. Stable per ortho for discharge to home health today or tomorrow. 5. The patient will follow up with Dr. Campos and/or DELMAR Gonzalez as previously scheduled.
[2018-07-06] MEDS ORDERED: Dexamethasone Inj 20 MG/5 ML Vial IV.PUSH ONE (08:00)
[2018-07-06] MEDS: Multivitamin/Minerals Therapeutic Tablet PO SCH ×2 (08:18→20:59)
[2018-07-06] MEDS: Senna/Docusate Sodium 8.6/50 MG Tablet PO SCH ×2 (08:19→20:58)
[2018-07-06] MEDS ORDERED: LIRAGLUTIDE 1.8 MG SQ SCH (09:00)
[2018-07-06] MEDS ORDERED: EMPAGLIFLOZIN 25 MG PO SCH (09:00)
[2018-07-06] MEDS: Glimepiride 4 MG Tablet PO SCH (20:59)
[2018-07-07] MEDS: oxyCODONE/Acetaminophen 10/325 Tablet PO PRN ×3 (03:10→13:40)
[2018-07-07] MEDS: Levothyroxine 75 MCG Tablet PO SCH (05:48)
[2018-07-07 05:53] LABS: Hematocrit 32.8 % (35.0-46.0); Hemoglobin 11.3 gm/dL (11.6-15.3)
[2018-07-07] MEDS: Multivitamin/Minerals Therapeutic Tablet PO SCH (09:20)
[2018-07-07] MEDS: Senna/Docusate Sodium 8.6/50 MG Tablet PO SCH (09:20)
--- NOTE | 2018-07-07 12:56 | P.PNOP ---
Subjective Interval history: Patient up in room ambulating to bathroom with no assistance. Patient states her pain is better today and reports being able to be more independent. Patient requesting to go home with home health today. Physical Exam Vital signs: Vital Signs 07/06/18 16:00 07/06/18 19:50 07/07/18 00:15 Temperature 99.2 F 98.7 F 98.6 F Pulse Rate 93 H 104 H 88 Respiratory Rate 18 18 17 Blood Pressure 125/58 L 135/64 142/64 H Pulse Oximetry 95 94 L 95 07/07/18 04:15 07/07/18 07:10 Temperature 99.0 F 98.1 F Pulse Rate 93 H 103 H Respiratory Rate 18 17 Blood Pressure 121/59 L 132/60 Pulse Oximetry 96 97 Intake & Output 07/06/18 07/07/18 07/07/18 18:59 06:59 18:59 Intake Total 1100 / 1100 650 / 650 Balance 1100 / 1100 650 / 650 Weight 106.9 kg Intake: Oral 1100 / 1100 650 / 650 Other: # Voids 15 3 Date of Last Bowel Movement 07/05/18 07/05/18 07/05/18 # Bowel Movements 0 Narrative: The patient's dressing is clean, dry, and intact. EHL/TA/G are intact. 2+ pedal pulse. The patient's calf is soft and nontender. Sensation is intact to light touch distally. Results - Labs CBC & Chem 7: 07/07/18 04:46 Laboratory Results - last 24 hr 07/06/18 07/07/18 16:37 04:46 Hgb 11.3 L Hct 32.8 L POC Glucose 240 H - Procedures Right total hip arthroplasty Assessment and Plan - Problem List (1) Status post total hip replacement, right Code(s): Z96.641 - Presence of right artificial hip joint Status: Acute (2) Osteoarthritis of right hip Code(s): M16.11 - Unilateral primary osteoarthritis, right hip Status: Acute - Assessment and Plan POD #2: [Right] total hip arthroplasty 1. Weightbearing as tolerated on [right] lower extremity. 2. Aspirin 81 mg twice daily for DVT prophylaxis. 3. Ice as needed for swelling. 4. Stable per ortho for discharge to home health today. 5. The patient will follow up with Dr. Campos and/or DELMAR Gonzalez as previously scheduled.
--- NOTE | 2018-07-07 12:58 | P.DS ---
Date of admission: 07/05/18 16:44 Primary care physician: Kisha Gallego MD Attending physician on discharge: Antonino Campos Anticipated date of discharge: 07/07/18 Brief History from admission: The patient was admitted to the hospital for severe osteoarthritis of the right hip to have a right total hip arthroplasty. DS: Diagnosis - Discharge Diagnosis (1) Status post total hip replacement, right Status: Acute (2) Osteoarthritis of right hip Status: Acute DS: Summary Hospital Course: The patient was admitted to the hospital for severe osteoarthritis of the [right ] hip to have a [right] total hip arthroplasty. The patient's surgery went well with no complication. The patient is on a diabetic diet. The patient's DVT prophylaxis includes use of aspirin 81 mg twice daily. The patient is weightbearing as tolerated. The patient was discharged [home with home health] and will follow up in the office with Dr. Campos and/or DELMAR Gonzalez as previously scheduled. - Time Spent with Patient Total time spent providing and/or coordinating discharge services: Greater than 30 minutes - Quality: VTE Deep Vein Thrombosis/Pulmonary Embolism Present on Admission: No Exam Vital signs: Vital Signs 07/06/18 16:00 07/06/18 19:50 07/07/18 00:15 Temperature 99.2 F 98.7 F 98.6 F Pulse Rate 93 H 104 H 88 Respiratory Rate 18 18 17 Blood Pressure 125/58 L 135/64 142/64 H Pulse Oximetry 95 94 L 95 07/07/18 04:15 07/07/18 07:10 Temperature 99.0 F 98.1 F Pulse Rate 93 H 103 H Respiratory Rate 18 17 Blood Pressure 121/59 L 132/60 Pulse Oximetry 96 97 Intake & Output 07/06/18 07/07/18 07/07/18 18:59 06:59 18:59 Intake Total 1100 / 1100 650 / 650 Balance 1100 / 1100 650 / 650 Weight 106.9 kg Intake: Oral 1100 / 1100 650 / 650 Other: # Voids 15 3 Date of Last Bowel Movement 07/05/18 07/05/18 07/05/18 # Bowel Movements 0 Narrative: The patient's dressing is clean, dry, and intact. EHL/TA/G are intact. 2+ pedal pulse. The patient's calf is soft and nontender. Sensation is intact to light touch distally. Results Procedures completed during hospitalization: Right total hip arthroplasty Labs on day of discharge: Labs from last 24 hours 07/07/18 07/06/18 04:46 16:37 Hgb 11.3 L Hct 32.8 L POC Glucose 240 H - Impressions ITS Impressions Hip X-Ray 07/05/18 13:35 CONCLUSION: Expected changes following recent right total hip arthroplasty, as above. There is severe left hip joint osteoarthritis. Discharge Plan - Discharge Disposition Patient Disposition: /Home Health Service - Discharge Order Discharge Orders: Discharge Order (Routine); Ordered 07/05/18 Ordered By: Jack Londono - Discharge Details Anticipated Discharge Date: 07/06/18 - Physicians Team Primary Care Provider: Kisha Gallego Attending Provider: Antonino Campos - Rxs /Orders / Referrals /Forms Prescriptions: Continue ascorbic acid (vitamin C) 500 mg Tablet 500 mg PO BID cetirizine 10 mg Tablet 10 mg PO HS docusate sodium 100 mg Capsule 100 mg PO DAILY empagliflozin 25 mg Tablet 25 mg PO DAILY flaxseed oil 1,000 mg Capsule 1,000 mg PO DAILY glimepiride 4 mg Tablet 8 mg PO HS levothyroxine 75 mcg Tablet 75 mcg PO DAILY liraglutide 0.6 mg/0.1 mL (18 mg/3 mL) Pen Injector 1.8 mg SUB-Q DAILY magnesium 250 mg Tablet 500 mg PO HS metformin 1,000 mg Tablet Extended Release 24hr 1,000 mg PO BIDPC multivitamin [Multiple Vitamins] Tablet 1 tab PO DAILY potassium gluconate 600 mg (99 mg) Tablet 600 mg PO DAILY pyridoxine (vitamin B6) 100 mg Tablet 100 mg PO DAILY simvastatin 20 mg Tablet 20 mg PO QPM Discontinued aspirin [Aspir-Low] 81 mg Tablet,Delayed Release (Dr/Ec) 81 mg PO DAILY chromium-brindal ingram [Garcinia Cambogia] 200-500 mcg-mg Tablet 1 tab PO DAILY coQ10 (ubiquinol) 200 mg Capsule 200 mg PO DAILY meloxicam 15 mg Tablet 15 mg PO DAILY oxycodone 5 mg Tablet 5 mg PO Q4-6H PRN (Reason: Pain) tramadol 50 mg Tablet 50 mg PO Q4-6H PRN (Reason: Pain) Ambulatory Orders / Order Sets / DME: Adjustable Commode 3-in-1 (1 each) (Routine) Location: Determined by Patient Ordered By: Jack Londono Walker With Front Wheels (1 each) (Routine) Location: Determined by Patient Ordered By: Jack Londono Referrals: Kisha Gallego [Other] - See Instructions Antonino Campos MD [Physician] - See Instructions (F/U in the office with Dr. Campos or Shoaib Londono APRN as previously scheduled. ) Kisha Gallego MD [Primary Care Provider] - See Instructions - Discharge Instructions Patient Printed Instructions: How to Choose and Use a Walker (GEN), Total Hip Replacement (DC) - Post Discharge Care Plan Care Plan Goals: Discharge Care Plan Goals for Total Hip Replacement You had a hip replacement surgery. This means your natural hip was replaced with an artificial joint (prosthesis). You may be recovering at home or in a rehabilitation facility. Either way, you must take care of your new hip. Here are some goals to help you heal well. Directions to Meet your Goals: 1. Activity & Exercises: * Take pain medicine as directed by your doctor. * Dont drive until your doctor says its OK. And never drive while taking opioid pain medicine. * Wear the support stockings you were given in the hospital as directed by your surgeon. * Dont sit for more than 30 to 45 minutes at one time. * Dont lean forward while sitting. * Dont cross your legs. * Keep your feet flat on the floor. Dont turn your foot or leg inward. This stresses your hip joint. * Use an elevated toilet seat for 6 weeks after surgery. * Nap if you are tired, but dont stay in bed all day. * Sit on a firm cushion when you ride in a car and avoid sitting too low. Try not to bend your hip too much when getting in and out of the car. 2. Prevent Falls/Injury: * Follow your doctors orders regarding how much weight to put on the affected leg. * Dont bend at the hip when you bend over. Don't bend at the waist to put on socks and shoes. And avoid picking up items from the floor. * Use a cane, crutches, a walker, or handrails until your balance, flexibility, and strength improve. And remember to ask for help from others when you need it. * Free up your hands so that you can use them to keep balance. Use a liberty pack , apron, or pockets to carry things. * Arrange your household to keep the items you need handy. Keep everything else out of the way. * Remove items that may cause you to fall, such as throw rugs and electrical cords. * Use nonslip bath mats, grab bars, an elevated toilet seat, and a shower chair in your bathroom * Sit on a shower stool or chair when you shower to keep from falling. 3. Precautions: * Prevent infection. Any infection will need to be treated immediately. Call your doctor right away if you think you might have an infection. * Tell your dentist that you have an artificial joint and take antibiotics as prescribed before any dental work. * Tell all your healthcare providers about your artificial joint before any medical procedure. * Maintain a healthy weight. Get help to lose any extra pounds. Added body weight puts stress on the joints. 4. Incision Care: * Prevent infection by washing your hands often. If an infection occurs, it will need to be treated right away. * Call your doctor right away if you think you may have an infection. Symptoms include a fever or an incision that leaks white, green, or yellow fluid. * Don't soak your incision in water until your doctor says its OK. This means no hot tubs, bathtubs, or swimming pools. * Follow your doctor's instructions for changing the dressing. * Dont rub the incision, or apply creams or lotions to it. * If you notice any redness or drainage around the bandage site, contact your surgeon's office immediately. 5. Follow-Up: Do Not miss your follow-up appointment. Keep up with all your appointments and yearly check ups When to call your doctor: Call your doctor right away if you have: Hip pain gets worse Pain or swelling in your calf or leg not related to your incision Tenderness or redness in your calf Fever of 100.4F (38C) or higher, or as directed by your healthcare provider Shaking chills Swelling or redness at the incision site gets worse Fluid draining from the incision Call 911: Call 911 right away if you have: Chest pain Shortness of breath Any pain or tenderness in your calf Full weight bearing Physician provided prescriptions prior to coming into hospital for pain and anticoagulation; Aspirin 2x daily Follow up with Dr Campos as directed No dressing changes
[2018-07-07 13:10] VITALS: BP 115/57; PULSE 99; RESP 18; TEMP 99.1; O2SAT 98
== END 2018-07-07 14:00 | disposition home health service (06) ==
LOC: HSDC 08:13 → EDSTATUS 11:30 → N06 16:44
PROVIDERS: ADMIT Orthopaedic Surgery; ATTEND Orthopaedic Surgery